=== PATIENT | female | born 1940 | race Caucasian/White ===

== ENCOUNTER 2017-02-23 13:28 | Emergency (ER) | payer MEDICARE ==
[~2017-02-23] VITALS: Ht 167.6 cm; Wt 55.0 kg
[~2017-02-23 13:28] MED LIST: ACETAMIN325 MG PO; ADVAIR DISK1; ADVAIR DISK1 INH; ADVAIR DISK2 IN; ALBUTEROL S2.5 MG/.5 IN; ALBUTEROL SUL0.083 % IN; ALBUTEROL0.5 % IN; ALBUTEROL2.5 MG/31 NEB; ALENDRONATE70 MG PO; ALLERGY1 TAB PO; ALPRAZOLAM0.5 MG PO; AMIODARONE HCL200 MG PO; AMOX/K CLAV875 M1 PO; AMOXICILLIN/CL500 MG PO; AMOXICILLIN500 MG PO; AMOXICILLIN875 MG PO; APAP OR; ASPIRIN EC325 MG PO; ASPIRIN EC81 MG PO; ASPIRIN325 MG PO; AUGMENTIN500TAB PO; AZITHROMYCIN250 MG PO; CEREFOLIN NAC PO; CETIRIZINE10 MG PO; CIPRO500 MG OR; CIPROFLOXACN250 MG PO; CIPROFLOXACN500 MG PO; CLARITIN5 MG PO; COMBIVENT IN; COMBIVENT RESPIMAT IN; COUMADIN2.5 MG PO; DALIRESP500 MCG PO; DEPO-MEDROL80 MG/ML IM; DILANTIN100 MG PO; DILAUDID 2MG2 MG/TA1 PO; DILAUDID 2MG2 MG/TAB PO; DILAUDID2 MG PO; DILAUDID3 MG PO; DILAUDID4 MG PO; DUONEB IN; DURAGESIC25 MCG/PAT TD; FERREX 150150 MG OR; FLAGYL500 MG PO; FLORASTOR250 M1 PO; FLUARIX QUADRIV1 INJ IM; FLUCONAZOLE100 MG PO; FOLIC ACID1 MG PO; FUROSEMIDE20 MG PO; GABAPENTIN100 MG PO; GAS RELIEF EXT125 MG PO; HYDROCO OR; HYDROCODONE BIT1 TA1 OR; HYDROCORTISONE2.5 % EX; HYDROMORPHON2 MG OR; HYDROMORPHON4 MG PO; IBUPROFEN200 MG; IMODIUM PO; IMODIUM2 MG PO; IPRATROPIUM BROMIDE IN; IPRATROPIUM BROMIDE NEB; ISOSORB DIN30 MG OR; KLOR-CON 1010 ME1 PO; KLOR-CON M2020 MEQ PO; LASIX 20 MG TAB20 MG PO; LASIX 20 MG20 MG/TAB PO; LASIX20 MG PO; LIPITOR40 M1 PO; LIPITOR40 MG PO; LISINOPRIL2.5 MG PO; LISINOPRIL40 MG OR; LISINOPRIL5 MG PO; LORTAB 5/3255 MG PO; LORTAB 7.5 PO; Levaquin PO; MACROBID100 MG PO; MACRODANTIN100 MG OR; MEDDOSEPAK OR; MEDDOSEPAK PO; METOPROL TAR25 MG PO; MICRO-K10 ME1 PO; MULTIVITAMIN OR; NITROFUR MAC50 MG PO; NITROGLYCER0.4 M1 SL; NITROSTAT0.4 MG SL; NIZORAL2 % EX; NYSTATIN100000 M1 PO; NYSTATIN100000 M3 TOP; OMEPRAZOLE20 MG PO; OMNICEF300 MG PO; ONDANSETRON HCL4 MG PO; OXYCONTIN15 MG OR; OXYGEN; PACERONE200 MG PO; PHENYTOIN EX100 M1 PO; PHILLIPS PO; POT CHLORIDE10 ME1 PO; PREDNISONE10 MG PO; PREDNISONE20 MG OR; PRILOSEC20 MG OR; PRILOSEC20 MG PO; PRILOSEC20 MG/CAP PO; PROBIOTIC1 TAB PO; PROVENTIL INH17 GM IN; PROVENTIL0.083 % IN; PYRIDIUM200 MG PO; RECLAST5 MG/100 M IV; SIMVASTATIN40 MG OR; SOLU-MEDROL125 MG PO; SPIRIVA HANDIHALER IN; SPIRIVA RE1.25 MCG/A IN; SYMBICORT 80-4.5MCG IN; SYMBICORT1 AE1 IN; TOPICORT 0.25% EX; TUDORZA PR400 MG/ACT IN; TUMS500 MG OR; VALPROIC ACD250 M3 PO; VENTOLIN HF1 IN; VENTOLIN HFA IN; VICODIN ES1 TAB OR; VICODIN ES1 TAB PO; VITAMIN D31000 UNI1 PO; XANAX0.5 MG PO; ZESTRIL40 MG OR; ZITHROMAX Z-PAK1 TAB PO; ZITHROMAX250 MG OR; ZITHROMAX500 MG PO; ZPAK PO; [UNRECOGNIZED DRUG - CODE] OR
[2017-02-23] MEDS ORDERED: PERCOCET 5/325M1 TAB PO (16:53)
[2017-02-23] MEDS ORDERED: EC-NAPROSYN500 MG PO (16:53)
[2017-02-23 17:07] VITALS: BP 137/87
== END 2017-02-23 17:20 | disposition home or self-care (01) ==
LOC: ED 13:28
PROC: 0HQ1XZZ Repair Face Skin, External Approach (ICD-10-PCS; principal; 2017-02-23)
PROC: 0HQGXZZ Repair Left Hand Skin, External Approach (ICD-10-PCS; 2017-02-23)
DX: S09.90XA Unspecified injury of head, initial encounter (principal); S01.81XA Laceration without foreign body of other part of head, initial encounter; S01.112A Laceration without foreign body of left eyelid and periocular area, initial encounter; S61.215A Laceration without foreign body of left ring finger without damage to nail, initial encounter; W18.30XA Fall on same level, unspecified, initial encounter; Y92.009 Unspecified place in unspecified non-institutional (private) residence as the place of occurrence of the external cause

== ENCOUNTER 2017-08-02 19:32 | Inpatient (IN) | payer MEDICARE ==
[~2017-08-02] VITALS: Ht 165.1 cm; Wt 59.0 kg
[~2017-08-02 19:32] MED LIST changes: +EC-NAPROSYN500 MG PO; +PERCOCET 5/325M1 TAB PO
[2017-08-02 20:16] LABS: HEMATOCRIT 34.5 % (37.0-47.0); IMMATURE GRANULOCYTES 0.6 % (0.0-1.0); MEAN CELL VOLUME 97.5 fL CALC (80.0-100.0); MEAN CORPUSCULAR HGB 31.1 pG CALC (26.0-32.0); MEAN CORPUSCULAR HGB CONC 31.9 g/L CALC (32.0-36.0); NEUT# 7.96 thou/uL (2.00-7.15); RED BLOOD COUNT 3.54 mill/uL (4.20-5.60); RED CELL DISTRI WIDTH 14.6 % (11.5-15.5)
[2017-08-02 20:24] LABS: ALBUMIN 3.9 g/dL (3.2-5.0); ALKALINE PHOSPHATASE 86 u/l (38-126); ANION GAP 16 (6-22 (CALC)); BILIRUBIN, TOTAL 0.4 mg/dL (0.0-1.4); BUN 19 mg/dL (8-23); BUN/CREATININE RATIO 31 (12-20 (CALC)); CALCIUM 9.1 mg/dL (8.4-10.2); CARBON DIOXIDE 28 mmol/l (22-30); CHLORIDE 103 mmol/l (95-108); CREATININE 0.6 mg/dL (0.5-1.0); GFR > 60 ML/MIN (>=60 (CALC)); GFR FOR AFR.AMER. > 60 ML/MIN (>=60 (CALC)); GLUCOSE 96 mg/dL (82-115); POTASSIUM 4.4 mmol/l (3.5-5.1); SGOT/AST 30 u/l (9-36); SGPT/ALT 40 u/l (11-66); SODIUM 143 mmol/l (137-146); TOTAL PROTEIN 7.3 g/dL (6.3-8.2)
[2017-08-02 20:36] LABS: MYOGLOBIN 42 ng/mL (0 - 62)
[2017-08-02 22:12] VITALS: BP 109/57
[2017-08-03 03:42] VITALS: BP 100/56
[2017-08-03 05:51] LABS: HEMATOCRIT 34.4 % (37.0-47.0); IMMATURE GRANULOCYTES 1.3 % (0.0-1.0); MEAN CELL VOLUME 96.4 fL CALC (80.0-100.0); MEAN CORPUSCULAR HGB 30.8 pG CALC (26.0-32.0); NEUT# 4.95 thou/uL (2.00-7.15); RED BLOOD COUNT 3.57 mill/uL (4.20-5.60); RED CELL DISTRI WIDTH 14.5 % (11.5-15.5)
[2017-08-03 05:59] LABS: ALBUMIN 3.4 g/dL (3.2-5.0); ALKALINE PHOSPHATASE 87 u/l (38-126); ANION GAP 16 (6-22 (CALC)); BILIRUBIN, TOTAL 0.4 mg/dL (0.0-1.4); BUN 18 mg/dL (8-23); BUN/CREATININE RATIO 29 (12-20 (CALC)); CARBON DIOXIDE 27 mmol/l (22-30); CHLORIDE 104 mmol/l (95-108); CREATININE 0.6 mg/dL (0.5-1.0); GFR > 60 ML/MIN (>=60 (CALC)); GFR FOR AFR.AMER. > 60 ML/MIN (>=60 (CALC)); GLUCOSE 112 mg/dL (82-115); SGOT/AST 24 u/l (9-36); SGPT/ALT 38 u/l (11-66); SODIUM 142 mmol/l (137-146); TOTAL PROTEIN 6.3 g/dL (6.3-8.2)
[2017-08-03 07:08] LABS: URINE BILIRUBIN - DIPSTICK NEGATIVE (NEGATIVE); URINE BLOOD DIPSTICK NEGATIVE (NEGATIVE); URINE CLARITY SLIGHT CLOUDY; URINE COLOR YELLOW; URINE GLUCOSE - DIPSTICK NEGATIVE (NEGATIVE); URINE KETONE NEGATIVE (NEGATIVE); URINE LEUK ESTERASE TRACE (NEGATIVE); URINE NITRITE - DIPSTICK NEGATIVE (Negative); URINE PROTEIN - DIPSTICK NEGATIVE (NEG-TRACE); URINE UROBILINOGEN - DIPSTICK 0.2 E.U./dL (0.2)
[2017-08-03 07:51] VITALS: BP 120/49
[2017-08-03 17:11] VITALS: BP 123/62
[2017-08-03 19:25] VITALS: BP 102/62
[2017-08-04 04:25] VITALS: BP 99/71
[2017-08-04 06:04] LABS: HEMATOCRIT 29.2 % (37.0-47.0); HEMOGLOBIN 9.4 g/dl (12.0-16.0); IMMATURE GRANULOCYTES 0.4 % (0.0-1.0); MEAN CELL VOLUME 96.4 fL CALC (80.0-100.0); MEAN CORPUSCULAR HGB CONC 32.2 g/L CALC (32.0-36.0); NEUT# 4.51 thou/uL (2.00-7.15); RED BLOOD COUNT 3.03 mill/uL (4.20-5.60); RED CELL DISTRI WIDTH 14.5 % (11.5-15.5)
[2017-08-04 06:06] LABS: ALBUMIN 2.9 g/dL (3.2-5.0); ALKALINE PHOSPHATASE 73 u/l (38-126); ANION GAP 11 (6-22 (CALC)); BILIRUBIN, TOTAL 0.3 mg/dL (0.0-1.4); BUN 18 mg/dL (8-23); BUN/CREATININE RATIO 28 (12-20 (CALC)); CALCIUM 8.7 mg/dL (8.4-10.2); CARBON DIOXIDE 28 mmol/l (22-30); CHLORIDE 105 mmol/l (95-108); CREATININE 0.6 mg/dL (0.5-1.0); GFR > 60 ML/MIN (>=60 (CALC)); GFR FOR AFR.AMER. > 60 ML/MIN (>=60 (CALC)); GLUCOSE 79 mg/dL (82-115); POTASSIUM 4.5 mmol/l (3.5-5.1); SGOT/AST 24 u/l (9-36); SGPT/ALT 31 u/l (11-66); SODIUM 140 mmol/l (137-146); TOTAL PROTEIN 5.5 g/dL (6.3-8.2)
[2017-08-04 08:01] VITALS: BP 96/58
== END 2017-08-04 10:58 | disposition home or self-care (01) | DRG 378 ==
LOC: ED 19:32 → ED-I 20:30 → ED 21:08 → MS2 21:09
PROVIDERS: ADMIT Internal Medicine Geriatric Medicine; ATTEND Internal Medicine Geriatric Medicine
DX: K92.1 Melena (principal); J44.1 Chronic obstructive pulmonary disease with (acute) exacerbation; J96.10 Chronic respiratory failure, unspecified whether with hypoxia or hypercapnia; Z99.81 Dependence on supplemental oxygen; I25.110 Atherosclerotic heart disease of native coronary artery with unstable angina pectoris; R62.7 Adult failure to thrive; K62.89 Other specified diseases of anus and rectum; K21.9 Gastro-esophageal reflux disease without esophagitis; Z85.038 Personal history of other malignant neoplasm of large intestine; Z90.49 Acquired absence of other specified parts of digestive tract; Z96.611 Presence of right artificial shoulder joint; R06.02 Shortness of breath
CPT/HCPCS: Q9967; S0164

== ENCOUNTER 2017-11-18 07:31 | Inpatient (IN) | payer MEDICARE ==
[~2017-11-18] VITALS: Ht 165.1 cm; Wt 51.5 kg
--- NOTE | 2017-11-18 07:46 | NUR ---
PT TO ROOM PER EMS. ALERT/ORIENTED X3, UNABLE TO VERIFY ALL HER MEDICATION LIST.
[2017-11-18 08:02] LABS: HEMOGLOBIN 12.7 g/dl (12.0-16.0); IMMATURE GRANULOCYTES 0.3 % (0.0-1.0); MEAN CELL VOLUME 95.2 fL CALC (80.0-100.0); MEAN CORPUSCULAR HGB 30.2 pG CALC (26.0-32.0); MEAN CORPUSCULAR HGB CONC 31.8 g/L CALC (32.0-36.0); NEUT# 4.26 thou/uL (2.00-7.15); RED BLOOD COUNT 4.2 mill/uL (4.20-5.60); RED CELL DISTRI WIDTH 13.2 % (11.5-15.5)
[2017-11-18 08:13] LABS: ALBUMIN 4.5 g/dL (3.2-5.0); ALKALINE PHOSPHATASE 81 u/l (38-126); ANION GAP 15 (6-22 (CALC)); BILIRUBIN, TOTAL 0.3 mg/dL (0.0-1.4); BUN 21 mg/dL (8-23); BUN/CREATININE RATIO 35 (12-20 (CALC)); CALCIUM 9.6 mg/dL (8.4-10.2); CARBON DIOXIDE 28 mmol/l (22-30); CHLORIDE 104 mmol/l (95-108); CREATININE 0.6 mg/dL (0.5-1.0); GFR > 60 ML/MIN (>=60 (CALC)); GFR FOR AFR.AMER. > 60 ML/MIN (>=60 (CALC)); GLUCOSE 112 mg/dL (82-115); POTASSIUM 4.7 mmol/l (3.5-5.1); SGOT/AST 38 u/l (9-36); SGPT/ALT 28 u/l (11-66); SODIUM 143 mmol/l (137-146); TOTAL PROTEIN 7.5 g/dL (6.3-8.2)
[2017-11-18 08:16] LABS: PHENYTOIN (DILANTIN) 13 ug/mL (10 - 20)
--- NOTE | 2017-11-18 08:41 | NUR ---
PATIENT RESTING AWAITING LAB RESULTS PATIENT DENIES ANY PAIN AT THIS TIME AND STATES SOB DECREASED
--- NOTE | 2017-11-18 09:40 | NUR ---
PATIENT AWAITING REPORT TO MED SURG PATIENT DENIES ANY PAIN OR SOB AT THIS TIME
--- NOTE | 2017-11-18 10:16 | NUR ---
REPORT CALLED TO MED SURG AND PATIENT TRANSPORTED
--- NOTE | 2017-11-18 10:40 | NUR ---
PT.ARRIVED TO FLOOR VIA STRETCHER ACCOMPANIED BY IVETTE OF ED. PT.APPEARS TO BE IN STABLE CONDITION, V/S ARE BEING ASSESSED AT THIS TIME AND PT.ORIENTED TO ROOM,CALL SYSTEM, LIGHTS AND TV. FAMILY IS AT SIDE. PT.SELF AMBULATED W/STANDBY ASSISTANCE TO STANDING SCALE AND BED. WILL FOLLOW-UP WITH FULL ASSESMENT AND MEDICATIONS ORDERED
[2017-11-18 10:46] VITALS: BP 102/65
--- NOTE | 2017-11-18 12:29 | NUR ---
PT.MEDICATED W/ANTIBIOTIC THERAPY, SOLU-MEDROL AND ASPIRIN. PT.WAS SLEEPING WHEN I ENTERED ROOM, AWOKE TO MY VOICE. DENIES PAIN OR SOB AT THIS TIME. O2 IS ON NC@2.5L. CALL LIGHT IN HAND AND PT.INSTRUCTED TO CALL IF SHE NEEDS ANY ASSISTANCE
[2017-11-18 15:23] VITALS: BP 113/66
--- NOTE | 2017-11-18 16:30 | NUR ---
PT.IS IN BED SLEEPING AT THIS TIME. SHE DID NOT AWAKE TO ME ENTERING ROOM. CALL LIGHT IS W/IN REACH. NO S/S OF DISTRESS
--- NOTE | 2017-11-18 18:10 | NUR ---
ASSISTED PT.TO BS AND UP IN RECLINER, SHE HAS BEEN IN THE BED MOST OF THE DAY. SHE DOES NOT WANT HER SUPPER TRAY, SHE ATE 25% OF MASHED POTATOES, 100% OF HER ICE CREAM AND NOW HAVING COFFEE. C/O PAIN 8/10 IN MID BACK AND 610 IN ABD./MEDICATED W/PAIN MEDS ORDERED. DENIES ANY N/V. URINE SAMPLE COLLECTED. CALL [facility] W/IN REACH ALONG WITH PHONE.
[2017-11-18 19:12] LABS: URINE BILIRUBIN - DIPSTICK NEGATIVE (NEGATIVE); URINE BLOOD DIPSTICK NEGATIVE (NEGATIVE); URINE COLOR YELLOW; URINE GLUCOSE - DIPSTICK NEGATIVE (NEGATIVE); URINE KETONE 40 mg/dL (NEGATIVE); URINE LEUK ESTERASE NEGATIVE (NEGATIVE); URINE NITRITE - DIPSTICK NEGATIVE (Negative); URINE PROTEIN - DIPSTICK NEGATIVE (NEG-TRACE); URINE SPECIFIC GRAVITY 1.025; URINE UROBILINOGEN - DIPSTICK 0.2 E.U./dL (0.2)
[2017-11-18 19:15] VITALS: BP 113/63
[2017-11-18 19:24] LABS: URINE CLARITY CLEAR
--- NOTE | 2017-11-18 19:30 | NUR ---
BEDSIDE REPORT RECEIVED FROM VIKY ULLOA. PT SITTING UP IN RECLINER COMFORTABLY. STATES THAT LORTAB WAS EFFECTIVE FOR CHRONIC BACK PAIN. RESPIRATIONS EVEN AND UNLABORED ON 2.5L OF OXYGEN VIA NC. PT STATES THAT FEAR OF NOT BEING ABLE TO BREATH EXACERBATES HER SHORTNESS OF BREATH AT TIMES. EDUCATED ON RELAXATION TECHNIQUES AND AVAILABILITY OF PRN BREATHING TREATMENTS. PLAN OF CARE ALSO DISCUSSED. PT ENCOURAGED TO VERBALIZE ANY OTHER CONCERNS. STATES UNDERSTANDING. SAFETY MEAUSURES IN PLACE. CALL LIGHT WITHIN REACH.
--- NOTE | 2017-11-18 23:51 | NUR ---
PT RESTING IN RECLINER WATCHING TV. RESPRIATIONS SHALLOW AND LUNGS WHEEZING ON OXYGEN. NO DISTRESS NOTED. ONLY REQUEST IS FOR COFFEE. PT USES CALL LIGHT PRN FOR ASSISTANCE. IV SITE FLUSHES AND APPEARS HEALTHY. SAFETY MEASURES REMAIN IN PLACE. CALL LIGHT WITHIN REACH.
[2017-11-19 00:05] VITALS: BP 106/66
--- NOTE | 2017-11-19 00:18 | NUR ---
REPOSTIONED INTO BED AND NOW ASLEEP COMFORTABLY; RESPIRATIONS EVEN AND UNLABORED.
[2017-11-19 03:30] VITALS: BP 147/82
--- NOTE | 2017-11-19 03:55 | NUR ---
PERCOCET GIVEN FOR LOWER BACK PAIN. PT WAS UP TO BATHROOM WITHOUT OXYGEN OR ASSITANCE AND BECAME SHORT OF BREATH. OXYGEN REPLACED AND DUONEB GIVEN BY RESPIRATORY WITH GOOD EFFECT. PT NOW RESTING COMFORTABLY IN BED. REINFORCED USE OF CALL LIGHT FOR ASSISTANCE. SAFETY MEASURES IN PLACE. CALL LIGHT WITHIN REACH.
[2017-11-19 05:54] LABS: ALBUMIN 3.6 g/dL (3.2-5.0); ALKALINE PHOSPHATASE 73 u/l (38-126); ANION GAP 15 (6-22 (CALC)); BILIRUBIN, TOTAL 0.2 mg/dL (0.0-1.4); BUN 21 mg/dL (8-23); BUN/CREATININE RATIO 34 (12-20 (CALC)); CALCULATED LDLCHOLESTEROL 99 mg/dL (62-129 (CALC)); CARBON DIOXIDE 27 mmol/l (22-30); CHLORIDE 104 mmol/l (95-108); CHOLESTEROL HDL RATIO 2.5 (<4.4 (CALC)); CREATININE 0.6 mg/dL (0.5-1.0); GFR > 60 ML/MIN (>=60 (CALC)); GFR FOR AFR.AMER. > 60 ML/MIN (>=60 (CALC)); GLUCOSE 99 mg/dL (82-115); HDL CHOLESTEROL 80 mg/dL (>=40); POTASSIUM 4.9 mmol/l (3.5-5.1); SGOT/AST 30 u/l (9-36); SGPT/ALT 19 u/l (11-66); SODIUM 140 mmol/l (137-146); TOTAL CHOLESTEROL 201 mg/dl (0-199); TOTAL PROTEIN 6.2 g/dL (6.3-8.2); TOTAL TRIGLYCERIDES 113 mg/dl (30-149); VLDL CHOLESTROL 23 mg/dl (0-48 (CALC))
--- NOTE | 2017-11-19 07:00 | NUR ---
SHIFT CHANGE REPORT FROM IAM, PT SLEEPING BUT AWAKENED TO LIGHT VERBAL STIMULI, O2 @ 2.5L IN PLACE VIA NC, TELE MONITOR IN PLACE, NO C/O DISCOMFORT, CALL [place] IN REACH.
[2017-11-19 07:52] VITALS: BP 118/72
--- NOTE | 2017-11-19 08:30 | NUR ---
Report received from Sarah Conrad LPN. Pt sitting up in bed, watching TV, drinking coffee when entered the room. Pt assessment completed. Pt exhibits no SOB at this time, respirations even & unlabored, anterior and posterior lung sounds are wheezing from apex to bases. Pt has occassional non-productive cough, exacerbated with deep breathing. Pt is on oxygen 2.5 L Nasal Cannula. Pt is alert & oriented x4. Speech is clear and comprehensible. Pt has dry, flaking skin, tenting when pinched, returning to normal >3 seconds. No signs of edema. Pt exhibits strong muscle strength in upper and lower extremities. Pt states last bowel movement was "a couple of days ago", bowel sounds are hyperactive x4, pt has a hx of impaction. Pt has a hx of falls, last fall occurring February 23, 2017 with head injury, no LOC with that fall per H&P on chart. Pt has hx of seizures, states last seizure was "approximately 8 months ago" and that seizures are "triggered by bright lights and when upset". Safety measures in place, call light and personal items within reach, reinforced use of call light.
[2017-11-19 10:59] VITALS: BP 111/64
--- NOTE | 2017-11-19 12:00 | NUR ---
SITTING UP IN RECLINER AND ATE MEAL, ALL NEEDS MET, CALL [facility] IN REACH.
--- NOTE | 2017-11-19 15:36 | NUR ---
POLLY PIPE INSTALLER RECOMMENDED PULMOCARE BE ADDED TO MEALS, DONE.
--- NOTE | 2017-11-19 15:38 | NUR ---
RESTING QUIETLY AT THIS TIME TAKING AFTERNOON NAP, BREATHING EVEN AND NON-LABORED, CALL [facility] IN REACH.
[2017-11-19 15:54] VITALS: BP 115/68
--- NOTE | 2017-11-19 16:32 | NUR ---
REPORT RECEIVED FROM VIKY GUTIERREZ. PT SLEEPING IN SEMI-FOWLERS POSITION AT THIS TIME. CALL LIGHT WITHIN REACH. WILL CONTINUE TO MONITOR.
--- NOTE | 2017-11-19 17:49 | NUR ---
PT ASSISTED TO RESTROOM WITH STANDBY ASSIST. STEADY GAIT. PT TOLERATED ACTIVITY WELL. 300 ML CLEAR YELLOW URINE EMPTIED.
[2017-11-19 19:20] VITALS: BP 107/58
--- NOTE | 2017-11-19 19:25 | NUR ---
PT OOB IN BEDSIDE CHAIR. RESP EVEN AND UNLABORED, O2 IN PLACE. WHEEZES AUSCULTATED BILAT. TELE IN PLACE. ABD SOFT, BOWEL SOUNDS PRESENT. IV LFA PATENT, FLUSHED WITHOUT DIFFICULTY. PEDAL PULSES PALPATED BILAT. PT DENIES ANY PAIN OR DISCOMFORT AT THIS TIME. FREQUENT ROUNDS MADE. CALL LIGHT WITHIN REACH.
--- NOTE | 2017-11-19 22:15 | NUR ---
CONTINUOUS PULSE OX PLACED ON PATIENT FOR OVERNIGHT READING ORDERED AT AROUND 2200 ON 11/19/17
--- NOTE | 2017-11-20 00:25 | NUR ---
PT APPEARS TO BE SLEEPING. CONTINUOUS O2 SAT IN PLACE, PLACED BY RT. TELE IN PLACE. RESP EVEN AND UNLABORED. NO DISTRESS NOTED. CALL LIGHT WITHIN REACH.
--- NOTE | 2017-11-20 04:25 | NUR ---
PT APPEARS TO BE SLEEPING. NO DISTRESS NOTED. RESP EVEN AND UNLABORED, O2 IN PLACE. CONTINUOUS PULSE OX IN PLACE. TELE IN PLACE. ASSESSMENT UNCHANGED. CALL LIGHT WITHIN REACH.
[2017-11-20 05:19] VITALS: BP 128/74
[2017-11-20 06:37] LABS: HEMATOCRIT 33.6 % (37.0-47.0); HEMOGLOBIN 10.8 g/dl (12.0-16.0); IMMATURE GRANULOCYTES 0.4 % (0.0-1.0); MEAN CELL VOLUME 93.9 fL CALC (80.0-100.0); MEAN CORPUSCULAR HGB 30.2 pG CALC (26.0-32.0); MEAN CORPUSCULAR HGB CONC 32.1 g/L CALC (32.0-36.0); NEUT# 4.58 thou/uL (2.00-7.15); RED BLOOD COUNT 3.58 mill/uL (4.20-5.60)
--- NOTE | 2017-11-20 06:38 | NUR ---
PT OFF FLOOR WITH STAFF VIA WHEELCHAIR FOR X-RAY.
--- NOTE | 2017-11-20 06:47 | NUR ---
PT BACK ON FLOOR FROM X-RAY.
--- NOTE | 2017-11-20 07:00 | NUR ---
SHIFT CHANGE REPORT FROM BERNADINE MCMULLEN AWAKE ALERT AND ORIENTED SITTING UP IN RECLINER, O2 @ 2.5L IN PLACE VIA N/C, NO C/O DISCOMFORT, CALL [facility] IN REACH.
[2017-11-20 07:03] LABS: ALBUMIN 3.5 g/dL (3.2-5.0); ALKALINE PHOSPHATASE 64 u/l (38-126); ANION GAP 12 (6-22 (CALC)); BILIRUBIN, TOTAL 0.1 mg/dL (0.0-1.4); BUN 23 mg/dL (8-23); BUN/CREATININE RATIO 38 (12-20 (CALC)); CALCIUM 9.5 mg/dL (8.4-10.2); CARBON DIOXIDE 30 mmol/l (22-30); CHLORIDE 103 mmol/l (95-108); CREATININE 0.6 mg/dL (0.5-1.0); GFR > 60 ML/MIN (>=60 (CALC)); GFR FOR AFR.AMER. > 60 ML/MIN (>=60 (CALC)); GLUCOSE 82 mg/dL (82-115); POTASSIUM 4.6 mmol/l (3.5-5.1); SGOT/AST 28 u/l (9-36); SGPT/ALT 23 u/l (11-66); SODIUM 140 mmol/l (137-146); TOTAL PROTEIN 5.8 g/dL (6.3-8.2)
[2017-11-20 08:08] VITALS: BP 127/72
[2017-11-20 11:09] VITALS: BP 116/71
--- NOTE | 2017-11-20 11:30 | NUR ---
ASSISTED PT TO BSC AND BACK TO BED, NO C/O DISCOMFORT, CALL [facility] IN REACH.
[2017-11-20 15:39] VITALS: BP 97/61
--- NOTE | 2017-11-20 16:00 | NUR ---
SLEEPING IN RECLINER AT THIS TIME (1600), NO SIGN DISCOMFORT, CALL [facility] IN REACH.
--- NOTE | 2017-11-20 17:26 | NUR ---
Talked to patient today about her medical problems and her medications. Discuss side effects and identification of her seizure medications. Pt. stated not experience any side effects with medications. Pt. did not have any other questions at this time.
[2017-11-20 18:45] VITALS: BP 100/64
--- NOTE | 2017-11-20 19:35 | NUR ---
PT OOB IN BEDSIDE CHAIR. PT ASSISTED TO BED. CONTINUOUS PULSE OX IN PLACE.RESP EVEN AND UNLABORED, O2 IN PLACE. LUNGS CLEAR, DIMINISHED IN BASES. TELE IN PLACE. ABD SOFT, BOWEL SOUNDS PRESENT. PEDAL PULSES PALPATED BILAT. IV LFA PATENT, FLUSHED WITHOUT ANY DIFFICULTY. PT REPOSITIONED FOR COMFORT. FREQUENT ROUNDS MADE. PT DENIES ANY PAIN OR DISCOMFORT. CALL LIGHT WITHIN REACH.
[2017-11-20 21:30] VITALS: BP 96/62
--- NOTE | 2017-11-20 21:55 | NUR ---
BP; 96/62, HR; 88. NOTIFIED OF VITALS, 2100 LISINOPRIL HELD; PER DOCTORS ORDER. CONTINUOUS PULSE OX D/C'D. RT CALLED & NOTIFIED OF NEW ORDER.
--- NOTE | 2017-11-21 00:20 | NUR ---
PT RESTING IN BED WATCHING TV. DENIES ANY PAIN OR DISCOMFORT. RESP EVEN AND UNLABORED WITH O2 IN PLACE. TELE IN PLACE. CALL LIGHT WITHIN REACH.
[2017-11-21 00:25] VITALS: BP 124/75
--- NOTE | 2017-11-21 04:50 | NUR ---
PT RESTING IN BED. DENIES ANY PAIN OR DISCOMFORT. RESP EVEN AND UNLABORED, O2 IN PLACE. TELE IN PLACE. ASSESSMENT UNCHANGED. CALL LIGHT WITHIN REACH.
[2017-11-21 05:00] VITALS: BP 113/68
[2017-11-21 07:10] LABS: HEMATOCRIT 37.1 % (37.0-47.0); IMMATURE GRANULOCYTES 0.4 % (0.0-1.0); MEAN CELL VOLUME 93.7 fL CALC (80.0-100.0); MEAN CORPUSCULAR HGB 30.3 pG CALC (26.0-32.0); MEAN CORPUSCULAR HGB CONC 32.3 g/L CALC (32.0-36.0); NEUT# 5.29 thou/uL (2.00-7.15); RED BLOOD COUNT 3.96 mill/uL (4.20-5.60); RED CELL DISTRI WIDTH 13.2 % (11.5-15.5)
[2017-11-21 07:16] LABS: ALBUMIN 4.2 g/dL (3.2-5.0); ALKALINE PHOSPHATASE 73 u/l (38-126); ANION GAP 16 (6-22 (CALC)); BILIRUBIN, TOTAL 0.2 mg/dL (0.0-1.4); BUN 25 mg/dL (8-23); BUN/CREATININE RATIO 40 (12-20 (CALC)); CALCIUM 9.7 mg/dL (8.4-10.2); CARBON DIOXIDE 27 mmol/l (22-30); CHLORIDE 103 mmol/l (95-108); CREATININE 0.6 mg/dL (0.5-1.0); GFR > 60 ML/MIN (>=60 (CALC)); GFR FOR AFR.AMER. > 60 ML/MIN (>=60 (CALC)); GLUCOSE 86 mg/dL (82-115); POTASSIUM 4.8 mmol/l (3.5-5.1); SGOT/AST 31 u/l (9-36); SGPT/ALT 24 u/l (11-66); SODIUM 140 mmol/l (137-146); TOTAL PROTEIN 6.8 g/dL (6.3-8.2)
--- NOTE | 2017-11-21 08:30 | NUR ---
DR. MENDES IN TO SEE PT. DISCUSSED POC AND DISCHARGE POSSIBLE TOMORROW. HE ORDERED PT.TO BE AMBULATED WITH O2 ON AND SAT LEVELS ASSESSED. PT.DENIES ANY NEEDS AT THIS TIME. CALL LIGHT AND PHONE ARE WITHIN REACH
[2017-11-21 09:19] VITALS: BP 108/61
[2017-11-21 11:00] VITALS: BP 112/66
--- NOTE | 2017-11-21 11:00 | NUR ---
PT.AMBULATED HALLWAY WITH INSTRUMENT TECHNOLOGIST ASSISTING, PT.IS ON 2L O2 NC AND SATURATION LEVELS ASSESSED AT 86% WHILE AMBULATING WITH OXYGEN ON. SATS WERE 94% WHILE SITTING ON SIDE OF BED PRIOR TO AMBULATING.
[2017-11-21 14:49] VITALS: BP 102/63
--- NOTE | 2017-11-21 15:50 | NUR ---
WALKING BY ROOM, PT.IS GETTING OUT OF THE BED, I GO IN TO ASSIST AND SHE IS ATTEMPTING TO AMBULATE TO RESTROOM. HER BSC IS NEXT TO THE BED, BUT SHE INSISTS ON GOING IN RESTROOM. O2 REMAINS IN PLACE NC AND PT.AMBULATED WELL AND ASSISTED BACK TO BED. PT.WAS INSTRUCTED TO PULL THE RED CORD WHEN SHE WAS FINISHED, BUT SHE DID NOT. I WAS STANDING JUST OUTSIDE THE BATHROOM DOOR AND SHE STARTED HEADING BACK TO BED W/OUT MY ASSISTANCE. PT. LEFT IN RECLINER W/CALL LIGHT IN HAND, TV ON. DENIES ANY OTHER NEEDS.
--- NOTE | 2017-11-21 18:15 | NUR ---
PT.SITTING UPRIGHT IN RECLINER EATING SUPPER AT THIS TIME. I ASSISTED HER WITH HER COFFEE AND MEDICATED HER ORDERS PROVIDE. CALL LIGHT IS ON BST W/N REACH. DENIES ANY OTHER NEEDS. POC DISCUSSED.
--- NOTE | 2017-11-21 20:10 | NUR ---
PT RESTING IN RECLINER WATCHING TV;RESPIRATIONS EVEN AND UNLABORED ON 02 @ 2.5L VIA NC,PT IS NOTED TO BE HOME DEPENDENT;A&O X3;PT DENIES ANY PAIN OR DISCOMFORTS;ASSESSMENT COMPLETED;#22G TO LEFT FOREARM FLUSHED AND PATENT,SITE APPEARS HEALTHY;PEDAL PULSES STRONG WITH TEDS IN PLACE;SKIN INTACT;TELE MONITOR IN PLACE;SEIZURE PRECAUTIONS NOTED FOR SAFETY;PT VOICES NO COMPLAINTS OR CONCERNS AT THIS TIME;EDUCATED TO CALL FOR ASSISTANCE IF NEEDED;FALL PRECAUTIONS IN PLACE WITH CALL LIGHT IN REACH;WILL CONTINUE TO MONITOR
--- NOTE | 2017-11-22 | NUR ---
PT APPEARS TO BE SLEEPING IN SEMI FOWLERS POSITION;RESPIRATIONS EVEN AND UNLABORED ON 02 @ 2L;NO S/S OF DISTRESS NOTED;FALL PRECAUTIONS IN PLACE WITH BED IN THE LOWEST POSITION;SEIZURE PRECAUTIONS NOTED;CALL LIGHT IN REACH;WILL CONTINUE TO MONITOR
[2017-11-22 00:04] VITALS: BP 107/66
--- NOTE | 2017-11-22 04:55 | NUR ---
PT APPEARS TO BE SLEEPING IN SEMI FOWLERS POSITION;NO S/S OF DISTRESS NOTED;RESPIRATIONS EVEN AND UNLABORED ON 02 @ 2L VIA NC;TELE MONITOR IN PLACE;SEIZURE PRECAUTIONS NOTED;BED IN LOWEST POSITION WITH CALL LIGHT IN REACH;WILL CONTINUE TO MONITOR
[2017-11-22 05:43] VITALS: BP 100/65
[2017-11-22 07:25] VITALS: BP 114/75
--- NOTE | 2017-11-22 07:25 | NUR ---
ASSESSMENT IS COMPLETED: PT IS SITTING UP ON THE SIDE OF THE BED, NO DISTRESS NOTED. IV SITE IS FREE FROM REDNESS OR EDEMA. TELE MONITOR IN PLACE. CONTINUE TO OBSERVE AND MONITOR.
[2017-11-22 11:18] VITALS: BP 108/66
--- NOTE | 2017-11-22 11:33 | NUR ---
PT RECEIVED DISCHARGE INSTRUCTIONS AND VERBALIZED UNDERSTANDING. IV SITE DISCONTINUED CATHETER INTACT., NO REDNESS OR EDEMA. FAMILY IN THE ROOM.
--- NOTE | 2017-11-22 11:52 | NUR ---
Discharge instructions given. Patient verbalizes understanding of same. Discharged in stable condition via Wheelchair to Home with family. All belongings sent with pt.
== END 2017-11-22 11:28 | disposition home or self-care (01) | DRG 191 ==
LOC: ED 07:31 → ED-I 08:58 → ED 09:10 → MS2 09:11
PROVIDERS: Emergency Medicine; ADMIT Internal Medicine Geriatric Medicine; ATTEND Internal Medicine Geriatric Medicine
DX: J44.1 Chronic obstructive pulmonary disease with (acute) exacerbation (principal); I25.110 Atherosclerotic heart disease of native coronary artery with unstable angina pectoris; J96.11 Chronic respiratory failure with hypoxia; Z99.81 Dependence on supplemental oxygen; Z68.1 Body mass index [BMI] 19.9 or less, adult; F19.20 Other psychoactive substance dependence, uncomplicated; D64.9 Anemia, unspecified; J44.0 Chronic obstructive pulmonary disease with (acute) lower respiratory infection; J20.9 Acute bronchitis, unspecified; M19.90 Unspecified osteoarthritis, unspecified site; M10.9 Gout, unspecified; G89.29 Other chronic pain; F41.1 Generalized anxiety disorder; E03.9 Hypothyroidism, unspecified; K21.9 Gastro-esophageal reflux disease without esophagitis; R53.1 Weakness; R63.4 Abnormal weight loss; R62.7 Adult failure to thrive; Z96.611 Presence of right artificial shoulder joint; Z85.038 Personal history of other malignant neoplasm of large intestine

== ENCOUNTER 2017-12-09 13:43 | Observation (INO) | payer MEDICARE ==
[~2017-12-09] VITALS: Ht 165.1 cm; Wt 47.0 kg
[2017-12-09 14:45] LABS: HEMATOCRIT 37.9 % (37.0-47.0); HEMOGLOBIN 11.9 g/dl (12.0-16.0); IMMATURE GRANULOCYTES 0.1 % (0.0-1.0); MEAN CELL VOLUME 96.4 fL CALC (80.0-100.0); MEAN CORPUSCULAR HGB 30.3 pG CALC (26.0-32.0); MEAN CORPUSCULAR HGB CONC 31.4 g/L CALC (32.0-36.0); NEUT# 4.77 thou/uL (2.00-7.15); RED BLOOD COUNT 3.93 mill/uL (4.20-5.60); RED CELL DISTRI WIDTH 14.5 % (11.5-15.5)
[2017-12-09 15:03] LABS: ALKALINE PHOSPHATASE 94 u/l (38-126); ANION GAP 15 (6-22 (CALC)); BILIRUBIN, TOTAL 0.3 mg/dL (0.0-1.4); BUN 21 mg/dL (8-23); BUN/CREATININE RATIO 33 (12-20 (CALC)); CALCIUM 9.8 mg/dL (8.4-10.2); CARBON DIOXIDE 31 mmol/l (22-30); CHLORIDE 99 mmol/l (95-108); CREATININE 0.6 mg/dL (0.5-1.0); GFR > 60 ML/MIN (>=60 (CALC)); GFR FOR AFR.AMER. > 60 ML/MIN (>=60 (CALC)); GLUCOSE 100 mg/dL (82-115); POTASSIUM 4.6 mmol/l (3.5-5.1); SGOT/AST 42 u/l (9-36); SGPT/ALT 37 u/l (11-66); SODIUM 141 mmol/l (137-146); TOTAL PROTEIN 6.5 g/dL (6.3-8.2)
[2017-12-09] MEDS ORDERED: ALPRAZOLAM0.5 MG PO (15:09)
[2017-12-09 15:14] LABS: MYOGLOBIN 70 ng/mL (0 - 62)
[2017-12-09 17:20] LABS: URINE BILIRUBIN - DIPSTICK NEGATIVE (NEGATIVE); URINE BLOOD DIPSTICK NEGATIVE (NEGATIVE); URINE COLOR YELLOW; URINE GLUCOSE - DIPSTICK NEGATIVE (NEGATIVE); URINE KETONE 15 mg/dL (NEGATIVE); URINE LEUK ESTERASE NEGATIVE (NEGATIVE); URINE NITRITE - DIPSTICK NEGATIVE (Negative); URINE PROTEIN - DIPSTICK TRACE mg/dL (NEG-TRACE); URINE SPECIFIC GRAVITY 1.025; URINE UROBILINOGEN - DIPSTICK 0.2 E.U./dL (0.2)
[2017-12-09 17:35] VITALS: BP 132/80
[2017-12-09 17:43] LABS: URINE CLARITY CLEAR
[2017-12-09 21:00] VITALS: BP 166/73
[2017-12-10 03:48] VITALS: BP 140/73
[2017-12-10 05:31] LABS: HEMATOCRIT 35.2 % (37.0-47.0); HEMOGLOBIN 11.3 g/dl (12.0-16.0); IMMATURE GRANULOCYTES 0.7 % (0.0-1.0); MEAN CELL VOLUME 94.9 fL CALC (80.0-100.0); MEAN CORPUSCULAR HGB 30.5 pG CALC (26.0-32.0); MEAN CORPUSCULAR HGB CONC 32.1 g/L CALC (32.0-36.0); NEUT# 3.07 thou/uL (2.00-7.15); RED BLOOD COUNT 3.71 mill/uL (4.20-5.60); RED CELL DISTRI WIDTH 14.3 % (11.5-15.5)
[2017-12-10 06:12] LABS: ALBUMIN 3.5 g/dL (3.2-5.0); ALKALINE PHOSPHATASE 81 u/l (38-126); ANION GAP 13 (6-22 (CALC)); BILIRUBIN, TOTAL 0.3 mg/dL (0.0-1.4); BUN 21 mg/dL (8-23); BUN/CREATININE RATIO 36 (12-20 (CALC)); CALCIUM 9.3 mg/dL (8.4-10.2); CARBON DIOXIDE 30 mmol/l (22-30); CHLORIDE 100 mmol/l (95-108); CREATININE 0.6 mg/dL (0.5-1.0); GFR > 60 ML/MIN (>=60 (CALC)); GFR FOR AFR.AMER. > 60 ML/MIN (>=60 (CALC)); GLUCOSE 98 mg/dL (82-115); SGOT/AST 40 u/l (9-36); SGPT/ALT 33 u/l (11-66); SODIUM 138 mmol/l (137-146); TOTAL PROTEIN 5.9 g/dL (6.3-8.2)
[2017-12-10 06:18] LABS: POTASSIUM 5.3 mmol/l (3.5-5.1)
[2017-12-10 07:45] VITALS: BP 98/55
[2017-12-10 08:31] LABS: CHOLESTEROL HDL RATIO 2.5 (<4.4 (CALC))
[2017-12-10 15:19] VITALS: BP 105/63
[2017-12-10 19:00] VITALS: BP 94/55
[2017-12-11 04:46] VITALS: BP 110/68
[2017-12-11 05:28] LABS: HEMOGLOBIN 11.2 g/dl (12.0-16.0); IMMATURE GRANULOCYTES 0.4 % (0.0-1.0); MEAN CELL VOLUME 95.2 fL CALC (80.0-100.0); MEAN CORPUSCULAR HGB 31.4 pG CALC (26.0-32.0); MEAN CORPUSCULAR HGB CONC 32.9 g/L CALC (32.0-36.0); NEUT# 3.46 thou/uL (2.00-7.15); RED BLOOD COUNT 3.57 mill/uL (4.20-5.60); RED CELL DISTRI WIDTH 14.2 % (11.5-15.5)
[2017-12-11 05:59] LABS: ANION GAP 12 (6-22 (CALC)); BUN 21 mg/dL (8-23); BUN/CREATININE RATIO 32 (12-20 (CALC)); CALCIUM 9.4 mg/dL (8.4-10.2); CARBON DIOXIDE 33 mmol/l (22-30); CHLORIDE 101 mmol/l (95-108); CREATININE 0.7 mg/dL (0.5-1.0); GFR > 60 ML/MIN (>=60 (CALC)); GFR FOR AFR.AMER. > 60 ML/MIN (>=60 (CALC)); GLUCOSE 93 mg/dL (82-115); POTASSIUM 4.8 mmol/l (3.5-5.1); SODIUM 141 mmol/l (137-146)
[2017-12-11 08:00] VITALS: BP 129/66
[2017-12-11] MEDS ORDERED: PREDNISONE20 MG PO ×2 (13:15→13:19)
[2017-12-11] MEDS ORDERED: AUGMENTIN500TAB PO (13:19)
== END 2017-12-11 15:35 ==
LOC: ED 13:43 → ED-I 16:25 → ED 17:01 → MS2 17:02
PROVIDERS: Emergency Medicine; ADMIT Internal Medicine Geriatric Medicine; ATTEND Internal Medicine Geriatric Medicine
DX: J44.1 Chronic obstructive pulmonary disease with (acute) exacerbation (principal); J44.0 Chronic obstructive pulmonary disease with (acute) lower respiratory infection; J20.9 Acute bronchitis, unspecified; J96.11 Chronic respiratory failure with hypoxia; I10 Essential (primary) hypertension; I48.91 Unspecified atrial fibrillation; I25.10 Atherosclerotic heart disease of native coronary artery without angina pectoris; K21.9 Gastro-esophageal reflux disease without esophagitis; E03.9 Hypothyroidism, unspecified; F41.1 Generalized anxiety disorder; M19.90 Unspecified osteoarthritis, unspecified site; D64.9 Anemia, unspecified; R62.7 Adult failure to thrive; R53.1 Weakness; Z68.1 Body mass index [BMI] 19.9 or less, adult; Z85.51 Personal history of malignant neoplasm of bladder; Z99.81 Dependence on supplemental oxygen; Z96.611 Presence of right artificial shoulder joint; Z90.49 Acquired absence of other specified parts of digestive tract; Z85.038 Personal history of other malignant neoplasm of large intestine
CPT/HCPCS: J1650

== ENCOUNTER → 2018-08-14 | Outpatient (REF) | payer MEDICARE ==
[~2018-08-14] MED LIST changes: +PREDNISONE20 MG PO
== END | disposition home or self-care (01) ==
LOC: MAMMO 13:12
PROVIDERS: ATTEND Internal Medicine Geriatric Medicine
DX: Z12.31 Encounter for screening mammogram for malignant neoplasm of breast (principal); N95.1 Menopausal and female climacteric states

== ENCOUNTER 2018-09-14 20:38 | Emergency (ER) | payer MEDICARE ==
[~2018-09-14] VITALS: Ht 165.1 cm; Wt 49.5 kg
[2018-09-14 21:29] LABS: HEMATOCRIT 34.2 % (37.0-47.0); HEMOGLOBIN 11.2 g/dl (12.0-16.0); IMMATURE GRANULOCYTES 0.8 % (0.0-5.0); MEAN CELL VOLUME 95.8 fL CALC (80.0-100.0); MEAN CORPUSCULAR HGB 31.4 pG CALC (26.0-32.0); MEAN CORPUSCULAR HGB CONC 32.7 g/L CALC (32.0-36.0); NEUT# 5.06 thou/uL (2.00-7.15); RED BLOOD COUNT 3.57 mill/uL (4.20-5.60); RED CELL DISTRI WIDTH 13.7 % (11.5-15.5)
[2018-09-14 21:47] LABS: ALBUMIN 3.7 g/dL (3.2-5.0); ALKALINE PHOSPHATASE 53 u/l (38-126); ANION GAP 10 (6-22 (CALC)); BILIRUBIN, TOTAL 0.1 mg/dL (0.0-1.4); BUN 22 mg/dL (8-23); BUN/CREATININE RATIO 35 (12-20 (CALC)); CARBON DIOXIDE 30 mmol/l (22-30); CHLORIDE 106 mmol/l (95-108); CREATININE 0.6 mg/dL (0.5-1.0); GFR > 60 ML/MIN (>=60 (CALC)); GFR FOR AFR.AMER. > 60 ML/MIN (>=60 (CALC)); POTASSIUM 4.3 mmol/l (3.5-5.1); SGOT/AST 31 u/l (9-36); SODIUM 142 mmol/l (137-146); TOTAL PROTEIN 6.2 g/dL (6.3-8.2)
[2018-09-14 21:48] LABS: INTERNATIONAL NORMALIZED RATIO 0.9 RATIO (0.7-1.3); PROTHROMBIN TIME 9.9 SECONDS (9.0-12.5)
[2018-09-14] MEDS ORDERED: ALENDRONATE70 MG PO (22:23)
[2018-09-14] MEDS ORDERED: NORCO1 TA2 PO (22:24)
[2018-09-14] MEDS ORDERED: TRELEGY ELLIPTA1 AER IN (22:25)
[2018-09-14 23:16] VITALS: BP 148/76
== END 2018-09-14 23:15 | disposition short-term general hospital (02) ==
LOC: ED 20:38
PROVIDERS: Emergency Medicine
DX: S72.011A Unspecified intracapsular fracture of right femur, initial encounter for closed fracture (principal); J44.9 Chronic obstructive pulmonary disease, unspecified; I10 Essential (primary) hypertension; I48.91 Unspecified atrial fibrillation; W18.30XA Fall on same level, unspecified, initial encounter; Y92.009 Unspecified place in unspecified non-institutional (private) residence as the place of occurrence of the external cause

== ENCOUNTER → 2019-01-10 | Outpatient (REF) | payer MEDICARE ==
[~2019-01-10] MED LIST changes: +NORCO1 TA2 PO; +TRELEGY ELLIPTA1 AER IN
[2019-01-10 12:23] LABS: HEMATOCRIT 35.3 % (37.0-47.0); HEMOGLOBIN 11.1 g/dl (12.0-16.0); IMMATURE GRANULOCYTES 0.3 % (0.0-5.0); MEAN CELL VOLUME 93.4 fL CALC (80.0-100.0); MEAN CORPUSCULAR HGB 29.4 pG CALC (26.0-32.0); MEAN CORPUSCULAR HGB CONC 31.4 g/L CALC (32.0-36.0); NEUT# 7.68 thou/uL (2.00-7.15); RED BLOOD COUNT 3.78 mill/uL (4.20-5.60); RED CELL DISTRI WIDTH 14.6 % (11.5-15.5)
== END | disposition home or self-care (01) ==
LOC: DI 12:00
PROVIDERS: ATTEND Nurse Practitioner Family
DX: J15.9 Unspecified bacterial pneumonia (principal)

== ENCOUNTER 2019-03-05 16:26 | Observation (INO) | payer MEDICARE ==
[~2019-03-05] VITALS: Ht 165.1 cm; Wt 61.0 kg
--- NOTE | 2019-03-05 16:34 | NUR ---
PATIENT TO ROOM VIA EMS AND PHYSICIAN AT BEDSIDE FOR EVAL
[2019-03-05 17:19] LABS: HEMATOCRIT 32.5 % (37.0-47.0); HEMOGLOBIN 10.2 g/dl (12.0-16.0); IMMATURE GRANULOCYTES 0.9 % (0.0-5.0); MEAN CELL VOLUME 95.6 fL CALC (80.0-100.0); MEAN CORPUSCULAR HGB CONC 31.4 g/L CALC (32.0-36.0); NEUT# 10.86 thou/uL (2.00-7.15); RED BLOOD COUNT 3.4 mill/uL (4.20-5.60); RED CELL DISTRI WIDTH 15.2 % (11.5-15.5)
--- NOTE | 2019-03-05 17:30 | NUR ---
WARM BLANKET GIVEN, PT RESTING QUIETLY ON STRETCHER,.
[2019-03-05 17:39] LABS: ANION GAP 14 (6-22 (CALC)); BUN 22 mg/dL (8-23); BUN/CREATININE RATIO 39 (12-20 (CALC)); CARBON DIOXIDE 27 mmol/l (22-30); CHLORIDE 104 mmol/l (95-108); CREATININE 0.6 mg/dL (0.5-1.0); GFR > 60 ML/MIN (>=60 (CALC)); GFR FOR AFR.AMER. > 60 ML/MIN (>=60 (CALC)); POTASSIUM 4.4 mmol/l (3.5-5.1); SODIUM 140 mmol/l (137-146)
--- NOTE | 2019-03-05 18:00 | NUR ---
PT STATES HAS TO URINATE, BRAY CATHETER PLACED, AND IMMEDIATE URINE OUTPUT. PT STATES FEELS BETTER, PT ALERT/ORIENTED X3, DR. MENDES SPEAKING WITH PT AND FAMILY, EXPLAINING THAT SHE IS TO BE ADMITTED TO OUR HOS[facility]ITAL. PT VOICES UNDERSTANDING.
--- NOTE | 2019-03-05 18:59 | NUR ---
REPORT GIVEN TO ROSIO FOR CONTINUATION OF CARE. PT TAKEN TO FLOOR PER STRETCHER WITH TELEMENTRY
[2019-03-05 19:00] VITALS: BP 103/52
--- NOTE | 2019-03-05 19:30 | NUR ---
PATIENT ADMITTED FROM ER VIA STRETCHER WITH ER STAFF INATTENDANCE. TRANSFERRED TO BED. FAMILY AT BEDSIDE. PATIENT IS AWAKE ALERT AND [place]. PATIENT C/O LEFT HIP AND ABD PAIN. WAS MEDICATED FOR PAIN IN ER. PATIENT WITH IV SITE TO LEFT UPPER CHEST PORT-SITE APPEARS HEALTHY AT THIS TIME. BRAY CATH PATENT AND DRAINING YELLOW URINE. O2 VIA NASAL CANNULA IN PLACE. TELE MONITOR IN PLACE. PATIENT AND FAMILY ORIENTED TO ROOM AND SURROUNDINGS. INSTRUCTED ON USE OF NURSE CALL LIGHT SYSTEM, TV REMOTE AND TELEPHONE. SIDERAILS PADDED FOR SEIZURE PRECAUTIONS. CALL LIGHT IN REACH. WILL CONT TO MONITOR.
[2019-03-05] MEDS ORDERED: LIPITOR40 M1 PO (20:23)
--- NOTE | 2019-03-05 22:17 | NUR ---
PATIENT RESTING IN BED WITH HOB ELEVATED AND O2 VIA NASAL CANNULA IN PLACE AT 2LPM. PATIENT HAS O2 AT HOME AND USES IT AT NIGHT AND PRN DURING THE DAY. IVF D51/2NS HUING AND INFUSING AT 75CC/HR VIA LEFT UPPER CHEST PORT- SITE IS HEALTHY WITH GOOD BLOOD RETURN WHEN FLUSHED. BRAY PATENT AND DRAINING CLEAR YELLOW URINE AT THIS TIME. PATIENT WITH C/O OF LEFT HIP PAIN AND MEDICATED WITH DILAUDID 1MG IVP FOR PAIN. SIDERAILS PADDED FOR SEIZURE PRECAUTIONS. SAFETY PRECAUTIONS REINFORCED. BED ALARM IN PLACE FOR PATIENT SAFETY-PATIENT IS FORGETFUL. CALL LIGHT IN REACH. WILL CONT TO MONITOR.
--- NOTE | 2019-03-05 23:39 | NUR ---
PATIENT RESTING IN BED-MOANING IN PAIN. TOO EARLY FOR PAIN MEDS. PATIENT TURNED AND REPOSITIONED. PATIENT MEDICATED WITH XANAX 0.25MG PO FOR ANXIETY. BED ALARM IN PLACE FOR PATIENT SAFETY. SIDERAILS PADDED FOR SEIZURE PRECAUTIONS. IVF PATENT AND INFUSING AT 75C/HR VIA LEFT UPPER CHEST. CALL LIGHT IN REACH. WILL CONT TO MONITOR.
[2019-03-06 00:28] VITALS: BP 153/71
--- NOTE | 2019-03-06 01:01 | NUR ---
APPEAES SLEEPING AT THIS TIME WITH EYES CLOSED. O2 VIA NASAL CANNULA IN PLACE. RESP ARE EVEN AND UNLABORED. BED ALARM IN PLACE FOR PATIENT SAFETY. SIDERAILS PADDED FOR SEIZURE PRECAUTIONS. CALL LIGHT IN REACH. WILL CONT TO MONITOR.
--- NOTE | 2019-03-06 04:25 | NUR ---
APPEARS SLEEPING AT THIS TIME WITH O2 VIA NASAL CANNULA IN PLACE. HOB SLIGHTLY ELEVATED. IVF PATENT AND INFUSING VIA LEFT UPPER CHEST PORT. SITE IS HEALTHY AT THIS TIME. BRAY PATENT AND DRAINING CLEAR YELLOW URINE. TELE MONITOR IN PLACE. RESP ARE EVEN AND UNLABORED. SIDERAILS PADDED FOR PATIENT SAFETY. BED ALARM IN PLACE FOR PATIENT SAFETY. CALL LIGHT IN REACH. WILL CONT TO MONITOR.
--- NOTE | 2019-03-06 05:14 | NUR ---
PATIENT RESTING IN BED-LAB WORK DRAWN FROM LEFT UPPER CHEST PORT WITHOUT ANY DIFFICULTY-GOOD BLOOD RETURN AND FLUSHED PER PROTOCOL. IVF D51/2NS PATENT AND INFUSING ORDERED. BRAY PATENT AND DRAINING YELLOW URINE. O2 VIA NASAL CANNULA IN PLACE. TELE MONITOR IN PLACE. BED ALARM IN PLACE FOR PATIENT SAFETY. CALL LIGHT IN REACH. WILL CONT TO MONITOR.
[2019-03-06 05:51] LABS: HEMATOCRIT 28.8 % (37.0-47.0); HEMOGLOBIN 9.1 g/dl (12.0-16.0); IMMATURE GRANULOCYTES 0.4 % (0.0-5.0); MEAN CELL VOLUME 95.7 fL CALC (80.0-100.0); MEAN CORPUSCULAR HGB 30.2 pG CALC (26.0-32.0); MEAN CORPUSCULAR HGB CONC 31.6 g/L CALC (32.0-36.0); NEUT# 6.93 thou/uL (2.00-7.15); RED BLOOD COUNT 3.01 mill/uL (4.20-5.60); RED CELL DISTRI WIDTH 15.1 % (11.5-15.5)
[2019-03-06 06:04] LABS: ALBUMIN 3.3 g/dL (3.2-5.0); ALKALINE PHOSPHATASE 68 u/l (38-126); ANION GAP 10 (6-22 (CALC)); BILIRUBIN, TOTAL 0.2 mg/dL (0.0-1.4); BUN 23 mg/dL (8-23); BUN/CREATININE RATIO 45 (12-20 (CALC)); CARBON DIOXIDE 31 mmol/l (22-30); CHLORIDE 102 mmol/l (95-108); CREATININE 0.5 mg/dL (0.5-1.0); GFR > 60 ML/MIN (>=60 (CALC)); GFR FOR AFR.AMER. > 60 ML/MIN (>=60 (CALC)); POTASSIUM 4.7 mmol/l (3.5-5.1); SODIUM 138 mmol/l (137-146); TOTAL PROTEIN 5.6 g/dL (6.3-8.2)
[2019-03-06 06:05] LABS: SGOT/AST 89 u/l (9-36)
--- NOTE | 2019-03-06 07:43 | NUR ---
REPORT RECEIEVED FROM VIKY AVELAR. PT SITTING IN SEMI-FOWLERS POSITION. SLEEPING. CALL LIGHT WITHIN REACH.
[2019-03-06 08:37] VITALS: BP 142/60
--- NOTE | 2019-03-06 09:00 | NUR ---
DR. MENDES IN TO SEE PT.
--- NOTE | 2019-03-06 09:05 | NUR ---
I SPOKE WITH MAO FROM [facility] @0900 AM. SHE VERIFIED THE DELIVERY FOR A STANDARD MATR[facility] AND THE CONFIRMATION #[id number]. SHE STATED THAT IT WILL BE DELIVERED SOME TIME TODAY.
[2019-03-06 11:46] VITALS: BP 117/59
[2019-03-06 14:24] VITALS: BP 159/84
--- NOTE | 2019-03-06 14:25 | NUR ---
PT SCREAMING IN PAIN. DILAUDID IV ADMINISTERED. PT SLEEPING AGAIN WITHIN MINUTES OF ADMINISTRATION. PT. RE-POSITIONED FOR COMFORT.
--- NOTE | 2019-03-06 15:30 | NUR ---
CT SCAN STILL BUSY WITH ER PT'S AT THIS TIME PER KAREN.
--- NOTE | 2019-03-06 17:00 | NUR ---
PT TRANSFERED TO STRETCHER BY PULL-OVER, TRANSPORTED TO CT SCAN. PT SCREAMING IN PAIN R/T MOVEMENT. DILAUDID IV RECENTLY ADMINISTERED AT 1627.
--- NOTE | 2019-03-06 17:20 | NUR ---
PT ARRIVED BACK TO FLOOR FROM CT. TRANSFERED BACK TO BED. PT SCREAMING IN PAIN W/ MOVEMENT. ASLEEP AGAIN MINUTES AFTER BEING IN BED.
[2019-03-06 19:46] VITALS: BP 150/83
--- NOTE | 2019-03-06 20:16 | NUR ---
PT MEDICATED FOR PAIN 9/10 ON PAIN SCALE. PT MOANING AND GROANING IN PAIN. FAMILY X2 AT BEDSIDE. WILL FOLLOW-UP WITH ASSESSMENT. CALL LIGHT AT BEDSIDE
--- NOTE | 2019-03-06 21:37 | NUR ---
I ATTEMPTED TO MEDICATE PT ORDERS PROVIDE, BUT SHE WAS UNABLE TO SWALLOW PILLS AT THIS TIME. TOO DISTRAUGHT, MOANING AND ASKING FOR HELP. ATTEMPTED TO POSITION PT FOR COMFORT MEASURES, BUT DID NOT SEEM TO HELP MUCH. WILL CONTINUE TO MONITOR AND MEDICATE ORDERS PROVIDE.
[2019-03-07] VITALS (7 sets, daily range): BP systolic 123–178; BP diastolic 47–82
--- NOTE | 2019-03-07 04:10 | NUR ---
PT APPEARS TO BE RESTING MORE COMFORTABLY AT THIS TIME. CALL LIGHT NEXT TO PT ON BED.
--- NOTE | 2019-03-07 04:12 | NUR ---
BRAY CATHETER IS DRAINING CLOUDY YELLOW URINE, STRAP IN PLACE TO RIGHT UPPER EXT. IV FLUIDS RUNNING PER ORDERS/SITE APPEARS HEALTHY AT THIS TIME.
--- NOTE | 2019-03-07 05:46 | NUR ---
PT MEDICATED FOR PAIN 08/21. PT IS MOANING STATING SHE IS HURTING AND CALLING OUT. HOB ELEVATED, PT APPEARED TO NEED TO VOMIT.
--- NOTE | 2019-03-07 07:15 | NUR ---
PT RESTING IN BED, ASSESSMENT DONE, SEE INTERVENTIONS. PT REPOSITIONED FOR COMFORT, MOANING. D5 1/2NS INFUSING TO PP @75ML/HR. DRSG CDI, NO S/S OF REDNESS OR INFECTION NOTED. SEIZURE PRECAUTIONS IN PLACE, NO SEIZURE ACTIVITY NOTED. LS COARSE THROUGHOUT, PRODUCTIVE COUGH, RESPIRATIONS EVEN/UNLABORED, 02@2PLM VIA NC. PT REMAINS VERY CONFUSED, UNABLE TO MAKE NEEDS KNOWN, STAFF MUST ANTICIPATE NEEDS. CALL LIGHT IN REACH. WILL MONITOR.
--- NOTE | 2019-03-07 08:30 | NUR ---
DR. MENDES AT BEDSIDE FOR ASSESSMENT AND TO DISCUSS PLAN OF CARE.
--- NOTE | 2019-03-07 09:15 | NUR ---
FAMILY AT BEDSIDE, PT MOANING, ASKED IF IN PAIN, PT STATED NO, PT ASKED IF SHE WOULD LIKE PAIN MEDICATION, PT STATED NO. PT FAMILY ASKED WHY SHE WAS MOANING, PT DID NOT ANSWER. PT SCHEDULED MEDICATIONS GIVEN, PT THEN BEGAN COUGHING FIT AND VOMITIED UP SMALL AMOUNT OF MUCUS AND 2 PILLS. FAMILY STATED THAT PT HAS BEEN CONFUSED AND HAS HX OF DEMENTIA. MOUTH CARE GIVEN, LIP BALM APPLIED. DAUGHTER AT BEDSIDE ASSISTING WITH BREAKFAST. CALL LIGHT IN REACH, WILL MONITOR.
--- NOTE | 2019-03-07 11:40 | NUR ---
PT CONTINUED MOANING OUT, PT AGREED TO RECIEVE PAIN MEDICATION. PT MEDICATED ORDERED. CALL LIGHT IN REACH. WILL MONITOR.
--- NOTE | 2019-03-07 12:00 | NUR ---
PT NOTED PULLING AT MEDICAL EQUIPMENT. PT PULLED OUT IV ACCESS TO PP, PT ALSO PULLED OF HER NC AND TELEMETRY MONITORING. PT EDUCATED ON THE IMPORTANCE OF MONITORING AND REORIENTED. PT REFUSED TO ALLOW ACCESSING THE PP. PT REFUSED TO REAPPLY TELEMETRY OR O2 VIA NC. WILL MONITOR.
--- NOTE | 2019-03-07 12:30 | NUR ---
DR. MENDES NOTIFIED OF PT STATUS.
--- NOTE | 2019-03-07 14:00 | NUR ---
DR. MENDES AT BEDSIDE FOR ASSESSMENT AND TO DISCUSS PLAN OF CARE. PT CONTINUES TO REFUSE ACCESS TO PP, TELEMETRY MONITORING OR 02. AGAIN THE RISK EVEN UP TO . PT CONTINUES TO REFUSE.NEW ORDERS RECIEVED. ATTEMPTED TO REPOSITION PT AGAIN REFUSED, TELLING STAFF "GET AWAY FROM ME" NO, NO,NO"
--- NOTE | 2019-03-07 15:00 | NUR ---
PT RESTING IN BED WITH EYES CLOSED, RESPIRATIONS EVEN/UNLABORED.
--- NOTE | 2019-03-07 17:00 | NUR ---
PT RESTING IN BED WITH EYES CLOSED, RESPIRATIONS EVEN/UNLABORED.
--- NOTE | 2019-03-07 18:13 | NUR ---
RT AT BEDSIDE, EXPLAIN THE RISK TO PT OF REFUSING TO WEAR NC. 02SAT @84%. PT CONTINUES TO REFUSE TX. DR. MENDES AGAIN NOTIFIED, DR. Mendes STATED HE WOULD CALL A SPEAK WITH FAMILY ABOUT PT CONDITION. WILL MONITOR.
--- NOTE | 2019-03-07 20:05 | NUR ---
PT IS LAYING CALMLY IN BED, APPEARS TO BE RELAXED AND IS WATCHING TV. NO S/O DISTRESS AT THIS TIME. IS AT BEDSIDE. WHEN ASKED HOW SHE IS FEELING, PT RESPONDS WITH "NOT SO GOOD." WHEN ASKED IF SHE IS IN PAIN SHE REPLIES, "YES." PT ASKED IF SHE WANTS MEDICATION FOR PAIN SHE REPLIED, "YES,"AND SHOOK HER HEAD YES. I ASKED PT IF WE COULD RE-ACCESS HER PORT IN HER CHEST AND SHE SAID "YES." I ASKED PT IS WE COULD REPLACE TELEMETRY ON HER AND SHE AGREED. TELEMETRY IS NOW ON AND I WILL FOLLOW-UP W/PHYSICIAN AND REACCESSING PORT ORDERED.
--- NOTE | 2019-03-07 20:15 | NUR ---
SPOKE W/ REGARDING REACCESSING PORT AND DC TELEMETRY. FURTHER ORDERS ALSO RECEIVED AT THIS TIME.
--- NOTE | 2019-03-07 22:01 | NUR ---
LEFT CHEST PORT ACCESSED AT THIS TIME WITH STERILE TECHNIQUE. 20G 0.75IN SAFE STEP STEINBERG NEEDLE SET.
[2019-03-08] VITALS (11 sets, daily range): BP systolic 113–146; BP diastolic 58–81
--- NOTE | 2019-03-08 01:35 | NUR ---
ED CALLED TO REPORT THAT PT WAS OFF TELEMETRY. UPON ENTERING ROOM, PT FAMILY WAS ASLEEP ON ROLL-OUT BED AND PT WAS SITTING ON THE SIDE OF THE BED AND HAD REMOVED UNSCRAMBLER. UNSCRAMBLER NOW REMAINS OFF PER PHYSICIAN ORDERS AND PT ASSISTED BACK TO BED. NOE/BRAY CARE PROVIDE AND PT REPOSITIONED FRO COMFORT. PT IS MOANING IN PAIN. WHEN ASKED SHE REPORTS PAIN IN [place] AND REQUESTS PAIN MEDICAITON. PT MEDICATED FOR PAIN 06/21. FAMILY MEMBER IS OUT OF THE ROOM AT THIS TIME AND BED ALARM PLACED ON WITH CALL LIGHT AT PT SIDE. PT WAS ABLE TO REORIENT APPROPRIATELY AT THIS TIME.
--- NOTE | 2019-03-08 05:55 | NUR ---
PT SET BED ALARM OFF ATTEMPTING TO GET UP. AIDES ARE IN W/PT AT THIS TIME REORIENTING PT. DAUGHTER AT BEDSIDE AWAKE. PT REPOSITIONED BACK IN BED FOR COMFORT, LABS DRAWN FROM PT PORT, FLUSHED AND HEPARANIZED. IV FLUIDS ARE RUNNING AT THIS TIME ORDERS PROVIDE. PT MEDICATED FOR PAIN 06/21. PT IS MOANING AND GROANING. PT LOC TO SELF//LOCATION, BUT CANNOT ANSWER WHY SHE IS AT THE HOSPITAL. PT REORIENTED TO CIRCUMSTANCE, DENIES ANY OTHER NEEDS AT THIS TIME. BED ALARM ON, DAUGHTER IS NO LONGER AT BEDSIDE AT THIS TIME, BUT STATES THAT SHE IS COMING BACK.
[2019-03-08 06:01] LABS: HEMATOCRIT 27.1 % (37.0-47.0); HEMOGLOBIN 8.8 g/dl (12.0-16.0); IMMATURE GRANULOCYTES 0.5 % (0.0-5.0); MEAN CELL VOLUME 93.8 fL CALC (80.0-100.0); MEAN CORPUSCULAR HGB 30.4 pG CALC (26.0-32.0); MEAN CORPUSCULAR HGB CONC 32.5 g/L CALC (32.0-36.0); NEUT# 7.93 thou/uL (2.00-7.15); RED BLOOD COUNT 2.89 mill/uL (4.20-5.60); RED CELL DISTRI WIDTH 14.5 % (11.5-15.5)
[2019-03-08 06:34] LABS: ALBUMIN 3.1 g/dL (3.2-5.0); ALKALINE PHOSPHATASE 71 u/l (38-126); ANION GAP 9 (6-22 (CALC)); BILIRUBIN, TOTAL 0.4 mg/dL (0.0-1.4); BUN 19 mg/dL (8-23); BUN/CREATININE RATIO 41 (12-20 (CALC)); CARBON DIOXIDE 30 mmol/l (22-30); CHLORIDE 101 mmol/l (95-108); CREATININE 0.5 mg/dL (0.5-1.0); GFR > 60 ML/MIN (>=60 (CALC)); GFR FOR AFR.AMER. > 60 ML/MIN (>=60 (CALC)); POTASSIUM 4.1 mmol/l (3.5-5.1); SGOT/AST 31 u/l (9-36); SODIUM 136 mmol/l (137-146); TOTAL PROTEIN 5.6 g/dL (6.3-8.2)
--- NOTE | 2019-03-08 08:40 | NUR ---
ASSESSMENT DONE. PT IS A&O X2. IVF INFUSING WELL. IN ROOM. DR. MENDES AT BEDSIDE TO DISCUSS POC WITH PT AND . AIR MATTRESS IN PLACE. PT DENIES PAIN AT THIS TIME. BED ALARM IN PLACE FOR SAFETY AND CALL LIGHT IN REACH.
--- NOTE | 2019-03-08 11:21 | NUR ---
EXPLAIN TO PT S/S OF BLOOD REACTION. PT VERBALIZED UNDERSTANDING. FIRST UNIT OF BLOOD BEGIN. PT DENIES ANY NEEDS AT THIS TIME. CALL LIGHT IN REACH. DAUGHTER IN ROOM.
--- NOTE | 2019-03-08 14:19 | NUR ---
SECOND UNIT OF BLOOD BEGIN. NO S/S OF DISTRESS NOTED ON PT. DAUGHTER IN ROOM SLEEPING. CALL LIGHT IN REACH.
--- NOTE | 2019-03-08 15:19 | NUR ---
PT IS RESTING IN BED. PT DENIES PAIN AT THIS TIME. PT CAN GET FORGETFUL AT TIMES. DAUGHTER IN ROOM. BLOOD INFUSING WELL. BED ALARM IN PLACE AND CALL LIGHT IN REACH.
--- NOTE | 2019-03-08 19:46 | NUR ---
PATIENT RESTING IN BED WITH HOB ELEVATED-O2 VIA NASAL CANNULA IN PLACE. IVF PATENT AND INFUSING VIA LEFT UPPER CHEST PORT-SITE APPEARS HEALTHY AT THIS TIME. BRAY PATENT AND DRAINING YELLOW URINE. PATIENT C/O LEFT HIP PAIN-MEDICATED WITH ULTRAM 50MG PO FOR PAIN. DAUGHTER VISITING AT BEDSIDE. SEIZURE PRECAUTIONS IN PLACE WITH SIDERAILS PADDED. SAFETY PRECAUTIONS REINFORCED. CALL LIGHT IN REACH. WILL CONT TO MONITOR.
--- NOTE | 2019-03-09 | NUR ---
PATIENT RESTLESS TRYING TO GET OUT OF THE BED WITH O2 OFF. DAUGHTER AT BEDSIDE. PATIENT ASSISTED BACK TO THE BED AND REPOSITONED OFF LEFT HIP. CALLED DR. MENDES AND ATIVAN 1MGIVP GIVEN ORDERED. PATIENT IS ON AIR MATTRESS. DAUGHTER REMAINS AT BEDSIDE. SEIZURE PRECAUTIONS IN PLACE WITH SIDERAILS PADDED. CALL LIGHT IN REACH. WILL CONT TO MONITOR. O2 BACK IN PLACE.
[2019-03-09 04:25] VITALS: BP 137/79
--- NOTE | 2019-03-09 04:37 | NUR ---
PATIENT APPEARS SLEEPING WITH EYES CLOSED AND MOUTH OPEN. O2 VIA NASAL CANNULA IN PLACE AT 2LPM. IVF PATENT AND INFUSING ORDERED VIA LEFT UPPER CHEST PORT. SITE APPEARS HEALTHY AT THIS TIME. BRAY PATENT AND DRAINING YELLOW URINE. SEIZURE PRECAUTIONS IN PLACE WITH SIDERAILS PADDED. SAFETY PRECAUTIONS IN PLACE WITH DAUGHTER AT BEDSIDE. CALL LIGHT IN REACH. [facility]
[2019-03-09 05:08] LABS: HEMATOCRIT 33.4 % (37.0-47.0); HEMOGLOBIN 11.2 g/dl (12.0-16.0); IMMATURE GRANULOCYTES 0.3 % (0.0-5.0); MEAN CELL VOLUME 88.8 fL CALC (80.0-100.0); MEAN CORPUSCULAR HGB 29.8 pG CALC (26.0-32.0); MEAN CORPUSCULAR HGB CONC 33.5 g/L CALC (32.0-36.0); NEUT# 7.73 thou/uL (2.00-7.15); RED BLOOD COUNT 3.76 mill/uL (4.20-5.60); RED CELL DISTRI WIDTH 15.5 % (11.5-15.5)
[2019-03-09 05:19] LABS: ALKALINE PHOSPHATASE 77 u/l (38-126); ANION GAP 10 (6-22 (CALC)); BILIRUBIN, TOTAL 0.6 mg/dL (0.0-1.4); BUN 21 mg/dL (8-23); BUN/CREATININE RATIO 47 (12-20 (CALC)); CARBON DIOXIDE 31 mmol/l (22-30); CHLORIDE 98 mmol/l (95-108); CREATININE 0.4 mg/dL (0.5-1.0); GFR > 60 ML/MIN (>=60 (CALC)); GFR FOR AFR.AMER. > 60 ML/MIN (>=60 (CALC)); POTASSIUM 3.9 mmol/l (3.5-5.1); SGOT/AST 39 u/l (9-36); SODIUM 136 mmol/l (137-146); TOTAL PROTEIN 5.6 g/dL (6.3-8.2)
--- NOTE | 2019-03-09 05:46 | NUR ---
PATIENT REPOSITIONED IN BED AND POSITIONED ON LEFT SIDE. PATIENT MOANING IN PAIN. MEDICATED WITH DILAUDID 1MG IVP FOR 10/10 LEFT HIP PAIN. DAUGHTER REMAINS AT BEDSIDE. SEIZURE PRECAUTIONS WITH SIDERAILS PADDED. CALL LIGHT IN REACH. WILL CONT TO MONITOR.
[2019-03-09 08:30] VITALS: BP 118/59
--- NOTE | 2019-03-09 08:45 | NUR ---
ASSESSMENT DONE. PT IS A&O X1. PT FORGETFUL AT TIMES. BRAY IS PATENT WITH YELLOW URINE. PT DENIES PAIN AT THIS TIME. BED ALARM IN PLACE FOR SAFETY. DR. MENDES AT BEDSIDE TO DISCUSS POC WITH PT [facility].
--- NOTE | 2019-03-09 12:28 | NUR ---
PT STATED PAIN IN HIP IS 07/22. MEDICATED PT WITH DILAUDID SEE EMAR. HAVE ENCOURAGE PT TO TAKE SIPS OF MAG CIT[employer]. IN ROOM. BED ALARM IN PLACE.
[2019-03-09 16:00] VITALS: BP 137/69; BP 94/65
--- NOTE | 2019-03-09 16:30 | NUR ---
PT IS RESTING IN BED WITH NO S/S OF DISTRESS NOTED. PT DENIES ANY NEEDS AT THIS TIME. CALL LIGHT IN REACH AND BED ALARM IN PLACE.
--- NOTE | 2019-03-09 20:00 | NUR ---
PATIENT RESTING IN BED AT THIS TIME-AWAKE ALERT AND ORIENTEDX3. DAUGHTER AT BEDSIDE WITH MOTHER. HOB ELEVATED AND O2 VIA NASAL CANNULA IN PLACE. BRAY CATH PATENT AND DRAINING YELLOW URINE. ENCOURAGE PATIENT TO TRY TO FINISH CITRATE OF MAG-ONLY SIPPING ON IT AT THIS TIME. PATIENT IS ON AIR MATTRESS. SAFETY AND SEIZURE PRECAUTIONS ARE IN PLACE WITH SIDERAILS PADDED. CALL LIGHT IN REACH. WILL CONT TO MONITOR.
[2019-03-09 20:26] VITALS: BP 143/80
[2019-03-10 04:43] VITALS: BP 142/80
--- NOTE | 2019-03-10 05:09 | NUR ---
PATIENT RESTING IN BED ON AIR MATTRESS. AWAKE ALERT AND C/O LEFT HIP PAIN. MEDICATED WITH DIDLAUDID 1MG IVP FOR PAIN. PAIENT INCONT OF STOOL AGAIN FOR A TOTAL OF 5 LOOSE WATERY STOOLS TONIGHT. PATIENT PROVIDED WITH PERSONEL CARE INCLUDING BRAY CATH CARE WITH SOAP AND H2O. PATIENT TURNED AND REPOSITONED. LINENS CHANGED. PATIENT REMAINS WITH O2 VIA NASAL CANNULA IN PLACE. IV SITE TO LEFT UPPER CHEST PORT INTACT WITH IVF PATENT AND INFUSING ORDERED. PATIENT ONLY DRANK APPROX 1/2 OF THE CITRATE OF MAG THAT WAS ORDERED. BED ALARM IN PLACE FOR PATIENT SAFETY. SEIZURE PRECAUTIONS IN PLACE WITH S=PADDED SIDERAILS. CALL LIGHT IN REACH. WILL CONT TO MONITOR.
--- NOTE | 2019-03-10 05:18 | NUR ---
PATIENT APPEARS SLEEPING AT THIS TIME WITH O2 VIA NASAL CANNULA IN PLACE. DAUGHTER RESTING ON COT PROVIDED. PATIENT HAS BEEN PASSING LOOSE WATERY STOOLS THROUGHOUT THE NIGHT. CALL LIGHT IN REACH, WILL CONT TO SHAYE.Dana
--- NOTE | 2019-03-10 06:55 | NUR ---
REPORT RECEIVED FROM VIKY AVELAR;PT RESTING IN BED WITH VISITOR AT BEDSIDE;INTRODUCED SELF TO PT AND POC DISCUSSED;RESPIRATIONS EVEN AND UNLABORED ON O2 @ 2L VIA NC;PT DENIES ANY CURRENT PAIN OR NEEDS;ENCOURAGED PT TO CALL FOR ASSISTANCE IF NEEDED;FALL PRECAUTIONS IN PLACE WITH BED INT HE LOWEST POSITION AND BED ALARM ON FOR SAFETY;CALL LIGHT IN REACH;WILL CONTINUE TO MONITOR
--- NOTE | 2019-03-10 08:18 | NUR ---
AT BEDSIDE DISCUSSING POC INCLUDING TRANSFER TO REHAB WITH PT AND FAMILY;PT AND FAMILY VERBALIZE UNDERSTANDING.
[2019-03-10] MEDS ORDERED: HYDROCODONE/ACE1 TAB PO (08:31)
[2019-03-10 09:24] VITALS: BP 130/72
--- NOTE | 2019-03-10 09:25 | NUR ---
PT RESTING IN SEMI FOWLERS POSITION WITH FAMILY AT BEDSIDE,A&O X3;VS OBTAINED AND ASSESSMENT COMPLETED;PT REPORTS ABDOMINAL PAIN RATING 10/10 ON THE PAIN SCALE,PT MEDICATED WITH PRN DILAUDID 1MG IVP;RESPIRATIONS SHALLOW ON O2 @ 3L VIA NC;ABDOMEN SOFT ON PALPATION AND ACTIVE IN ALL 4 QUADRANTS;WEAK PEDAL PULSES;SKIN INTACT;BRAY CATHETER PATENT DRAINING YELLOW URINE TO GRAVITY WITH EASE,LEG STRAP IN PLACE;LEFT UPPER CHEST PORT INFUSING D5 1/2 NS @ 75ML/HR WITH EASE;PT DENIES ANY ADDITIONAL NEEDS AND IS ENCOURAGED TO CALL FOR ASSISTANCE IF NEEDED;FALL PRECAUTIONS IN PLACE WITH CALL LIGHT AND BED ALARM ON;WILL CONTINUE TO MONITOR
--- NOTE | 2019-03-10 11:45 | NUR ---
PT RESTING IN SEMI FOWLERS POSITION WITH FAMILY AT BEDSIDE;RESPIRATIONS EVEN AND UNLABORED,SHALLOW ON O2 @ 3L VIA NC;PT DENIES ANY CURRENT NEEDS;IV FLUIDS INFUSING WITH EASE TO LEFT UPPER CHEST PORT;BRAY CATHETER REMAINS PATENT DRAINING TO GRAVITY;PT DENIES ANY ADDITIONAL NEEDS AND IS ENCOURAGED TO CALL FOR ASSISTANCE IF NEEDED;FALL PRECAUTIONS IN PLACE WITH BED ALARM ON FOR SAFETY;CALL LIGHT IN REACH;WILL CONTINUE TO MONITOR
--- NOTE | 2019-03-10 14:10 | NUR ---
PT TRANSPORTED TO [facility] IN STABLE CONDITION VIA WHEELCHAIR
--- NOTE | 2019-03-10 16:30 | NUR ---
I SPOKE WITH ZEESHAN FROM [facility] @0950 AND HE CONFIRMED THE [facility] TO BE PICKED UP SOMETIME. THE CONFIRMATION NUMBER IS [id number].
--- NOTE | 2019-03-10 16:31 | NUR ---
REPORT CALLED TO VIKY ORDAZ AT [facility]
== END 2019-03-10 14:10 ==
LOC: ED 16:26 → ED-I 17:44 → ED 17:56 → MS2 17:57
PROVIDERS: Family Medicine; ADMIT Internal Medicine Geriatric Medicine; ATTEND Internal Medicine Geriatric Medicine
PROC: 0T9B70Z Drainage of Bladder with Drainage Device, Via Natural or Artificial Opening (ICD-10-PCS; principal; 2019-03-05)
PROC: 30233N1 Transfusion of Nonautologous Red Blood Cells into Peripheral Vein, Percutaneous Approach (ICD-10-PCS; 2019-03-08)
PROC: 30233N1 Transfusion of Nonautologous Red Blood Cells into Peripheral Vein, Percutaneous Approach (ICD-10-PCS; 2019-03-08)
DX: S32.592A Other specified fracture of left pubis, initial encounter for closed fracture (principal); F03.90 Unspecified dementia, unspecified severity, without behavioral disturbance, psychotic disturbance, mood disturbance, and anxiety; I10 Essential (primary) hypertension; J96.11 Chronic respiratory failure with hypoxia; I25.10 Atherosclerotic heart disease of native coronary artery without angina pectoris; I48.91 Unspecified atrial fibrillation; F41.1 Generalized anxiety disorder; D64.9 Anemia, unspecified; J43.9 Emphysema, unspecified; E03.9 Hypothyroidism, unspecified; R62.7 Adult failure to thrive; R53.1 Weakness; M19.90 Unspecified osteoarthritis, unspecified site; M81.0 Age-related osteoporosis without current pathological fracture; W01.0XXA Fall on same level from slipping, tripping and stumbling without subsequent striking against object, initial encounter; Y92.009 Unspecified place in unspecified non-institutional (private) residence as the place of occurrence of the external cause; Z96.643 Presence of artificial hip joint, bilateral; Z85.038 Personal history of other malignant neoplasm of large intestine; Z68.22 Body mass index [BMI] 22.0-22.9, adult; Z96.619 Presence of unspecified artificial shoulder joint; Z99.81 Dependence on supplemental oxygen; F32.9 Major depressive disorder, single episode, unspecified
CPT/HCPCS: J2060; P9016

== ENCOUNTER 2021-04-10 10:06 | Emergency (ER) | payer MEDICARE ==
[~2021-04-10] VITALS: Ht 165.1 cm; Wt 45.0 kg
[~2021-04-10 10:06] MED LIST changes: +HYDROCODONE/ACE1 TAB PO
[2021-04-10 10:59] LABS: HEMATOCRIT 34.6 % (37.0-47.0); IMMATURE GRANULOCYTES 0.3 % (0.0-5.0); MEAN CORPUSCULAR HGB 30.5 pG CALC (26.0-32.0); MEAN CORPUSCULAR HGB CONC 31.8 g/dL CAL (32.0-36.0); NEUT# 6.21 thou/uL (2.00-7.15); RED BLOOD COUNT 3.61 mill/uL (4.20-5.60); RED CELL DISTRI WIDTH 13.9 % (11.5-15.5)
[2021-04-10 11:00] LABS: MEAN CELL VOLUME 95.8 fL CALC (80.0-100.0)
[2021-04-10 11:09] LABS: ALKALINE PHOSPHATASE 57 u/l (38-126); ANION GAP 8 (6-22 (CALC)); BILIRUBIN, TOTAL 0.4 mg/dL (0.0-1.4); BUN 30 mg/dL (8-23); BUN/CREATININE RATIO 43 (12-20 (CALC)); CARBON DIOXIDE 30 mmol/l (22-30); CHLORIDE 104 mmol/l (95-108); CREATININE 0.7 mg/dL (0.5-1.0); GFR > 60 ML/MIN (>=60 (CALC)); GFR FOR AFR.AMER. > 60 ML/MIN (>=60 (CALC)); SGOT/AST 35 u/l (9-36); SODIUM 137 mmol/l (137-146)
[2021-04-10 11:21] LABS: ALBUMIN 3.8 g/dL (3.2-5.0); MYOGLOBIN 66 ng/mL (0 - 62)
[2021-04-10 13:22] LABS: URINE BILIRUBIN - DIPSTICK NEGATIVE (NEGATIVE); URINE BLOOD DIPSTICK SMALL (NEGATIVE); URINE GLUCOSE - DIPSTICK NEGATIVE (NEGATIVE); URINE KETONE 15 mg/dL (NEGATIVE); URINE LEUK ESTERASE TRACE (NEGATIVE); URINE PROTEIN - DIPSTICK TRACE mg/dL (NEG-TRACE); URINE SPECIFIC GRAVITY 1.025; URINE UROBILINOGEN - DIPSTICK 0.2 E.U./dL (0.2)
[2021-04-10 13:25] LABS: URINE COLOR DK. YELLOW; URINE NITRITE - DIPSTICK POSITIVE (Negative)
[2021-04-10 13:26] LABS: URINE BACTERIA MANY hpf; URINE RBC 0-2 RBC/hpf (0-5); URINE WBC 0-2 WBC/hpf (0-5)
[2021-04-10] MEDS ORDERED: CALTRATE 600+D1 CHW (18:14)
[2021-04-10 18:15] LABS: PROTHROMBIN TIME 10.2 SECONDS (9.0-12.5)
[2021-04-10] MEDS ORDERED: DOCUSATE SO1 PO (18:16)
[2021-04-10] MEDS ORDERED: CVS MELATONIN10 MG PO (18:18)
[2021-04-10] MEDS ORDERED: DONEPEZIL10 MG PO (18:20)
[2021-04-10] MEDS ORDERED: QUETIAPINE FUMA25 MG PO (18:21)
[2021-04-10 20:00] VITALS: BP 120/57
== END 2021-04-10 20:00 ==
LOC: ED 10:06
PROVIDERS: Emergency Medicine
DX: S32.591A Other specified fracture of right pubis, initial encounter for closed fracture (principal); S32.030A Wedge compression fracture of third lumbar vertebra, initial encounter for closed fracture; F03.90 Unspecified dementia, unspecified severity, without behavioral disturbance, psychotic disturbance, mood disturbance, and anxiety; I10 Essential (primary) hypertension; I48.91 Unspecified atrial fibrillation; J44.9 Chronic obstructive pulmonary disease, unspecified; W19.XXXA Unspecified fall, initial encounter; Y92.009 Unspecified place in unspecified non-institutional (private) residence as the place of occurrence of the external cause; Z96.643 Presence of artificial hip joint, bilateral; Z91.81 History of falling; Z20.822 Contact with and (suspected) exposure to COVID-19

== ENCOUNTER 2022-09-08 20:32 | Emergency (ER) | payer MEDICARE ==
[~2022-09-08] VITALS: Ht 165.1 cm; Wt 39.5 kg
[~2022-09-08 20:32] MED LIST changes: +CALTRATE 600+D1 CHW; +CVS MELATONIN10 MG PO; +DOCUSATE SO1 PO; +DONEPEZIL10 MG PO; +LORTAB 1010 MG PO; -NORCO1 TA2 PO; +QUETIAPINE FUMA25 MG PO
[2022-09-08 20:38] VITALS: BP 181/94
[2022-09-08 20:40] VITALS: BP 177/103
[2022-09-08 20:45] VITALS: BP 180/93
[2022-09-08 21:00] VITALS: BP 177/83
[2022-09-08] MEDS ORDERED: VALPROIC A250 MG/51 PO (22:36)
[2022-09-08] MEDS ORDERED: PHENYTOIN EX100 M1 PO (22:38)
[2022-09-08 22:40] LABS: HEMATOCRIT 37.7 % (37.0-47.0); HEMOGLOBIN 12.4 g/dl (12.0-16.0); IMMATURE GRANULOCYTES 0.2 % (0.0-5.0); MEAN CELL VOLUME 95.2 fL CALC (80.0-100.0); MEAN CORPUSCULAR HGB 31.3 pG CALC (26.0-32.0); MEAN CORPUSCULAR HGB CONC 32.9 g/dL CAL (32.0-36.0); NEUT# 5.07 thou/uL (2.00-7.15); RED BLOOD COUNT 3.96 mill/uL (4.20-5.60)
[2022-09-08 23:14] LABS: ALBUMIN 4.1 g/dL (3.2-5.0); ALKALINE PHOSPHATASE 67 u/l (38-126); ANION GAP 11 (6-22 (CALC)); BILIRUBIN, TOTAL 0.3 mg/dL (0.0-1.4); BUN 18 mg/dL (8-23); BUN/CREATININE RATIO 30 (12-20 (CALC)); CARBON DIOXIDE 26 mmol/l (22-30); CHLORIDE 104 mmol/l (95-108); CREATININE 0.6 mg/dL (0.5-1.0); GFR FOR AFR.AMER. > 60 ML/MIN (>=60 (CALC)); GFR OTHER RACES > 60 ML/MIN (>=60 (CALC)); POTASSIUM 4.1 mmol/l (3.5-5.1); SGOT/AST 31 u/l (9-36); SODIUM 137 mmol/l (137-146); TOTAL PROTEIN 7.2 g/dL (6.3-8.2)
[2022-09-08 23:21] LABS: MYOGLOBIN 81 ng/mL (0 - 62)
[2022-09-09 00:08] LABS: URINE BILIRUBIN - DIPSTICK NEGATIVE (NEGATIVE); URINE BLOOD DIPSTICK NEGATIVE (NEGATIVE); URINE COLOR YELLOW; URINE GLUCOSE - DIPSTICK NEGATIVE (NEGATIVE); URINE KETONE NEGATIVE (NEGATIVE); URINE LEUK ESTERASE NEGATIVE (NEGATIVE); URINE PROTEIN - DIPSTICK NEGATIVE (NEG-TRACE); URINE SPECIFIC GRAVITY 1.015; URINE UROBILINOGEN - DIPSTICK 0.2 E.U./dL (0.2)
[2022-09-09 00:09] LABS: URINE NITRITE - DIPSTICK NEGATIVE (Negative)
[2022-09-09 00:17] LABS: PHENYTOIN (DILANTIN) < 3 ug/mL (10 - 20)
[2022-09-09 00:51] VITALS: BP 177/83
== END 2022-09-09 01:28 | disposition home or self-care (01) ==
LOC: ED 20:32
PROVIDERS: Emergency Medicine
DX: R56.9 Unspecified convulsions (principal); I10 Essential (primary) hypertension; J44.9 Chronic obstructive pulmonary disease, unspecified; I48.91 Unspecified atrial fibrillation

== ENCOUNTER 2022-12-01 10:43 | Observation (INO) | payer MEDICARE ==
[2022-12-01] VITALS (17 sets, daily range): BP systolic 93–179; BP diastolic 53–130
[~2022-12-01] VITALS: Ht 165.1 cm; Wt 36.0 kg
[~2022-12-01 10:43] MED LIST changes: +VALPROIC A250 MG/51 PO
[2022-12-01 11:52] LABS: BASO% 0.4 % (0-3); EOS% 0.4 % (0-8); HEMATOCRIT 39.8 % (37.0-47.0); HEMOGLOBIN 13.1 g/dl (12.0-16.0); IMMATURE GRANULOCYTES 0.9 % (0.0-5.0); LYMPH% 7.7 % (15-41); MEAN CELL VOLUME 95.2 fL CALC (80.0-100.0); MEAN CORPUSCULAR HGB 31.3 pG CALC (26.0-32.0); MEAN CORPUSCULAR HGB CONC 32.9 g/dL CAL (32.0-36.0); MONO% 8.5 % (2-13); NEUT# 6.77 thou/uL (2.00-7.15); NEUT% 82.1 % (42-76); RED BLOOD COUNT 4.18 mill/uL (4.20-5.60); RED CELL DISTRI WIDTH 14.2 % (11.5-15.5)
[2022-12-01 12:11] LABS: ALBUMIN 4.1 g/dL (3.2-5.0); ALKALINE PHOSPHATASE 87 u/l (38-126); BUN 31 mg/dL (8-23); BUN/CREATININE RATIO 47 (12-20 (CALC)); CHLORIDE 103 mmol/l (95-108); CREATININE 0.7 mg/dL (0.5-1.0); GFR FOR AFR.AMER. > 60 ML/MIN (>=60 (CALC)); GFR OTHER RACES > 60 ML/MIN (>=60 (CALC)); SGOT/AST 36 u/l (9-36); SODIUM 142 mmol/l (137-146); TOTAL PROTEIN 7.3 g/dL (6.3-8.2)
[2022-12-01 12:52] LABS: ANION GAP 10 (6-22 (CALC)); BILIRUBIN, TOTAL 0.6 mg/dL (0.0-1.4); CARBON DIOXIDE 32 mmol/l (22-30); POTASSIUM 3.2 mmol/l (3.5-5.1)
[2022-12-01 12:55] LABS: URINE BILIRUBIN - DIPSTICK NEGATIVE (NEGATIVE); URINE BLOOD DIPSTICK NEGATIVE (NEGATIVE); URINE COLOR YELLOW; URINE GLUCOSE - DIPSTICK NEGATIVE (NEGATIVE); URINE KETONE TRACE mg/dL (NEGATIVE); URINE LEUK ESTERASE NEGATIVE (NEGATIVE); URINE PH 6.5 (4.5-8.0); URINE PROTEIN - DIPSTICK TRACE mg/dL (NEG-TRACE); URINE SPECIFIC GRAVITY 1.025
[2022-12-01 12:56] LABS: URINE NITRITE - DIPSTICK NEGATIVE (Negative)
[2022-12-01 13:01] LABS: URINE BACTERIA MANY hpf; URINE SQUAMOUS EPITHELIAL CELL FEW EPI/hpf (0-FEW); URINE WBC 0-2 WBC/hpf (0-5)
[2022-12-01] MEDS ORDERED: MEGESTROL AC20 MG PO (13:48)
[2022-12-01] MEDS ORDERED: MEMANTINE HYDROC5 MG PO (13:49)
[2022-12-01] MEDS ORDERED: DONEPEZIL10 MG PO (13:49)
[2022-12-02 00:25] VITALS: BP 156/47
[2022-12-02 05:03] VITALS: BP 128/57
[2022-12-02 07:14] VITALS: BP 136/63
[2022-12-02 11:13] VITALS: BP 134/56
[2022-12-02 14:20] VITALS: BP 135/54
[2022-12-03 00:15] VITALS: BP 157/60
[2022-12-03 07:32] VITALS: BP 172/73
[2022-12-03 10:41] LABS: BASO% 0.2 % (0-3); EOS% 0.2 % (0-8); HEMATOCRIT 42.4 % (37.0-47.0); HEMOGLOBIN 14.4 g/dl (12.0-16.0); IMMATURE GRANULOCYTES 0.2 % (0.0-5.0); LYMPH% 8.5 % (15-41); MEAN CELL VOLUME 93.4 fL CALC (80.0-100.0); MEAN CORPUSCULAR HGB 31.7 pG CALC (26.0-32.0); MONO% 8.1 % (2-13); NEUT# 7.33 thou/uL (2.00-7.15); NEUT% 82.8 % (42-76); RED BLOOD COUNT 4.54 mill/uL (4.20-5.60); RED CELL DISTRI WIDTH 13.8 % (11.5-15.5)
[2022-12-03 10:55] LABS: ANION GAP 11 (6-22 (CALC)); BUN/CREATININE RATIO 20 (12-20 (CALC)); CARBON DIOXIDE 28 mmol/l (22-30); CHLORIDE 103 mmol/l (95-108); CREATININE 0.4 mg/dL (0.5-1.0); GFR FOR AFR.AMER. > 60 ML/MIN (>=60 (CALC)); GFR OTHER RACES > 60 ML/MIN (>=60 (CALC)); POTASSIUM 3.4 mmol/l (3.5-5.1); SODIUM 138 mmol/l (137-146)
[2022-12-03 10:56] LABS: BUN 8 mg/dL (8-23)
[2022-12-03 12:17] VITALS: BP 108/74
[2022-12-03 15:45] VITALS: BP 122/63
[2022-12-03 19:22] VITALS: BP 148/84
[2022-12-04] VITALS (8 sets, daily range): BP systolic 119–212; BP diastolic 61–97
[2022-12-04 14:01] LABS: BASO% 0.2 % (0-3); EOS% 1.2 % (0-8); HEMATOCRIT 39.3 % (37.0-47.0); HEMOGLOBIN 13.3 g/dl (12.0-16.0); IMMATURE GRANULOCYTES 0.1 % (0.0-5.0); LYMPH% 6.4 % (15-41); MEAN CELL VOLUME 92.7 fL CALC (80.0-100.0); MEAN CORPUSCULAR HGB 31.4 pG CALC (26.0-32.0); MEAN CORPUSCULAR HGB CONC 33.8 g/dL CAL (32.0-36.0); MONO% 8.3 % (2-13); NEUT# 7.03 thou/uL (2.00-7.15); NEUT% 83.8 % (42-76); RED BLOOD COUNT 4.24 mill/uL (4.20-5.60); RED CELL DISTRI WIDTH 14.2 % (11.5-15.5)
[2022-12-04 14:15] LABS: ALBUMIN 3.3 g/dL (3.2-5.0); ALKALINE PHOSPHATASE 72 u/l (38-126); ANION GAP 5 (6-22 (CALC)); BILIRUBIN, TOTAL 0.4 mg/dL (0.0-1.4); BUN 5 mg/dL (8-23); BUN/CREATININE RATIO 9 (12-20 (CALC)); CARBON DIOXIDE 32 mmol/l (22-30); CHLORIDE 104 mmol/l (95-108); CREATININE 0.5 mg/dL (0.5-1.0); GFR FOR AFR.AMER. > 60 ML/MIN (>=60 (CALC)); GFR OTHER RACES > 60 ML/MIN (>=60 (CALC)); POTASSIUM 2.8 mmol/l (3.5-5.1); SGOT/AST 30 u/l (9-36); SODIUM 138 mmol/l (137-146); TOTAL PROTEIN 6.1 g/dL (6.3-8.2)
[2022-12-05 00:10] VITALS: BP 171/102
[2022-12-05 02:40] VITALS: BP 159/90
[2022-12-05 03:42] VITALS: BP 149/74
[2022-12-05 06:42] VITALS: BP 137/73
[2022-12-05 07:33] VITALS: BP 137/73
[2022-12-05 07:42] LABS: BASO% 0.3 % (0-3); EOS% 1.9 % (0-8); HEMATOCRIT 41.1 % (37.0-47.0); HEMOGLOBIN 13.5 g/dl (12.0-16.0); IMMATURE GRANULOCYTES 0.1 % (0.0-5.0); LYMPH% 10.1 % (15-41); MEAN CELL VOLUME 95.4 fL CALC (80.0-100.0); MEAN CORPUSCULAR HGB 31.3 pG CALC (26.0-32.0); MEAN CORPUSCULAR HGB CONC 32.8 g/dL CAL (32.0-36.0); MONO% 11.1 % (2-13); NEUT# 5.59 thou/uL (2.00-7.15); NEUT% 76.5 % (42-76); RED BLOOD COUNT 4.31 mill/uL (4.20-5.60); RED CELL DISTRI WIDTH 14.3 % (11.5-15.5)
[2022-12-05 07:48] LABS: ALBUMIN 3.6 g/dL (3.2-5.0); ALKALINE PHOSPHATASE 80 u/l (38-126); ANION GAP 9 (6-22 (CALC)); BILIRUBIN, TOTAL 0.5 mg/dL (0.0-1.4); BUN 5 mg/dL (8-23); BUN/CREATININE RATIO 11 (12-20 (CALC)); CARBON DIOXIDE 28 mmol/l (22-30); CHLORIDE 105 mmol/l (95-108); CREATININE 0.4 mg/dL (0.5-1.0); GFR FOR AFR.AMER. > 60 ML/MIN (>=60 (CALC)); GFR OTHER RACES > 60 ML/MIN (>=60 (CALC)); POTASSIUM 2.8 mmol/l (3.5-5.1); SGOT/AST 34 u/l (9-36); SODIUM 139 mmol/l (137-146); TOTAL PROTEIN 6.4 g/dL (6.3-8.2)
[2022-12-05] MEDS ORDERED: AMOXICILLIN500 M2 PO (11:18)
[2022-12-05 13:23] VITALS: BP 134/61
== END 2022-12-05 16:41 ==
LOC: ED 10:43 → ED-I 13:20 → ED 13:42 → MS2 13:43
PROVIDERS: Family Medicine; Internal Medicine; Nurse Practitioner Family; ADMIT Internal Medicine; ATTEND Internal Medicine
DX: R62.7 Adult failure to thrive (principal); E86.0 Dehydration; R64 Cachexia; N39.0 Urinary tract infection, site not specified; I10 Essential (primary) hypertension; F03.90 Unspecified dementia, unspecified severity, without behavioral disturbance, psychotic disturbance, mood disturbance, and anxiety; J44.9 Chronic obstructive pulmonary disease, unspecified; J96.10 Chronic respiratory failure, unspecified whether with hypoxia or hypercapnia; I48.91 Unspecified atrial fibrillation; M19.90 Unspecified osteoarthritis, unspecified site; B95.2 Enterococcus as the cause of diseases classified elsewhere; Z68.1 Body mass index [BMI] 19.9 or less, adult; Z85.038 Personal history of other malignant neoplasm of large intestine; Z85.51 Personal history of malignant neoplasm of bladder; Z91.81 History of falling; Z87.891 Personal history of nicotine dependence; Z99.81 Dependence on supplemental oxygen
CPT/HCPCS: J1650